=== PATIENT | female | born 1965 | race Caucasian/White ===

== ENCOUNTER 2016-10-26 10:26 | Inpatient (IN) | payer MEDICAID ==
[2016-10-26] VITALS (10 sets, daily range): BP systolic 82–110; BP diastolic 44–66; PULSE 72–90; RESP 16–18; TEMP 98.5–100; O2SAT 90–99
[~2016-10-26] VITALS: Ht 162.6 cm; Wt 75.0 kg
[~2016-10-26 10:26] MED LIST: AUGM875T PO; NYST500KS SWISH-SWAL; TUMS500C PO
[2016-10-26] MEDS ORDERED: SODIUM CHLOR 0.9% 1000 ML INJ 1,000 ML IV SCH (10:44)
[2016-10-26] MEDS ORDERED: MORPHINE SULFATE 4 MG/ML INJ IV PUSH ONE (10:45)
[2016-10-26] MEDS ORDERED: SODIUM CHLORIDE 0.9% FLUSH 10 ML FLUSH IV FLUSH PRN ×2 (10:45→14:15)
[2016-10-26] MEDS ORDERED: ONDANSETRON HCL 4 MG/2 ML VIAL IVP ONE (10:45)
[2016-10-26 10:59] LABS: AUTOMATED NEUTROPHIL # 27.6 TH/MM3 (1.8-7.7); BASOPHIL # 0.5 TH/MM3 (0-0.2); BASOPHIL % 1.8 % (0.0-2.0); EOSINOPHIL # 0.1 TH/MM3 (0-0.4); EOSINOPHIL % 0.2 % (0.0-4.0); HEMATOCRIT 37.3 % (35.0-46.0); LYMPH % 5.3 % (9.0-44.0); LYMPHOCYTE # 1.6 TH/MM3 (1.0-4.8); MEAN CELL VOLUME 89.1 FL (80.0-100.0); MEAN CORPUSCULAR HEMOGLOBIN 29.8 PG (27.0-34.0); MEAN CORPUSCULAR HGB CONC 33.4 % (32.0-36.0); NEUT % 91.7 % (16.0-70.0); PLATELET COUNT 390 TH/MM3 (150-450); RED BLOOD COUNT 4.19 MIL/MM3 (4.00-5.30); RED CELL DISTRIBUTION WIDTH 14.2 % (11.6-17.2); WHITE BLOOD COUNT 30.1 TH/MM3 (4.0-11.0)
[2016-10-26 11:02] LABS: HEMO FLAGS AUTO DIFF
[2016-10-26 11:10] LABS: CHLORIDE 107 MEQ/L (98-107); POTASSIUM 3.9 MEQ/L (3.5-5.1); SODIUM (NA) 137 MEQ/L (136-145)
[2016-10-26 11:10] LABS: BLOOD, URINE SMALL (NEG); GLUCOSE,URINE NEG (NEG); KETONE, URINE NEG (NEG); NITRITE,URINE NEG (NEG)
[2016-10-26 11:14] LABS: ANION GAP 8 MEQ/L (5-15); APTT (PATIENT) 29.7 SEC (24.3-30.1); BICARBONATE 22.3 MEQ/L (21.0-32.0); BLOOD UREA NITROGEN 9 MG/DL (7-18); INTERNATIONAL NORMALIZED RATIO 0.9 RATIO; PROTHROMBIN TIME - PATIENT 10.3 SEC (9.8-11.6)
[2016-10-26 11:16] LABS: ALT (GPT) 82 U/L (10-53)
[2016-10-26 11:17] LABS: AST (GOT) 120 U/L (15-37); GLOMERULAR FILTRATION RATE 68 ML/MIN (>89)
[2016-10-26 11:17] LABS: METHOD OF COLLECTION CLEAN CATCH; RBC, URINE 0-3 /hpf (0-3); SQUAMOUS EPITHELIAL CELL URINE 0-5 /hpf (0-5); URINE COLOR YELLOW (YELLW/STRAW)
[2016-10-26 11:18] LABS: TOTAL BILIRUBIN ADULT 0.7 MG/DL (0.2-1.0)
[2016-10-26 11:18] LABS: COMMENT (UR) CULT NOT INDICATED; CULTURE IF INDICATED CULT NOT INDICATED
[2016-10-26 11:20] LABS: ALKALINE PHOSPHATASE 141 U/L (45-117)
[2016-10-26 11:24] LABS: SCAN/DIFF AUTO DIFF CONFIRMED
[2016-10-26] MEDS ORDERED: IOHEXOL 350 MG/ML 10 ML VIAL (for RAD DIAG) IV ONE (11:48)
--- NOTE | 2016-10-26 12:03 | RADRPT ---
EXAM DATE/TIME: 10/26/2016 11:35 [facility] COMPARISON: CT ABDOMEN & PELVIS W CONTRAST, October 07, 2015, 1:13. INDICATIONS : Abdominal pain radiating to back. IV CONTRAST: 90 cc Omnipaque 350 (iohexol) IV ORAL CONTRAST: No oral contrast ingested. RADIATION DOSE: 8.76 CTDIvol (mGy) MEDICAL HISTORY : None SURGICAL HISTORY : section. Tubal ligation. ENCOUNTER: Initial ACUITY: 1 day PAIN SCALE: 5/10 LOCATION: abdomen TECHNIQUE: Volumetric scanning of the abdomen and pelvis was performed. Using automated exposure control and ad justment of the mA and/or kV according to patient size, radiation dose was kept as low as reasonably achievable to obtain optimal diagnostic quality images. DICOM format image data is available electro nically for review and comparison. FINDINGS: LOWER LUNGS: Posterior bibasilar patchiness is noted consistent with possible pneumonia. Clinical correlation is r ecommended. LIVER: The liver is enlarged. Homogeneous density without lesion. There is no dilation of the biliary tree. No calcified gallstones. SPLEEN: Normal size without lesion. PANCREAS: Within normal limits. KIDNEYS: Normal in size and shape. There is no solid mass, stone or hydronephrosis. There is a stable 17 mm r ight renal cyst. ADRENAL GLANDS: Within normal limits. VASCULAR: There is no aortic aneurysm. BOWEL/MESENTERY: There is mild fold thickening involving the proximal jejunum raising the possibility of mild jejuniti s. Clinical correlation is recommended. Uncomplicated colonic diverticulosis is noted. ABDOMINAL WALL: Within normal limits. RETROPERITONEUM: There is no lymphadenopathy. BLADDER: No wall thickening or mass. REPRODUCTIVE: Within normal limits. INGUINAL: There is no lymphadenopathy or hernia. MUSCULOSKELETAL: Within normal limits for patient age. CONCLUSION: 1. Posterior bibasilar patchiness consistent with possible pneumonia. Clinical correlation is recomme nded. 2. Mild fold thickening involving the proximal jejunum raising the possibility of mild jejunitis. Cli nical correlation is recommended. 3. Uncomplicated sigmoid diverticulosis. 4. Stable hepatomegaly. 5. Stable 17 mm right renal cyst. Joao Barrett MD on October 26, 2016 at 11:54 Board Certified Radiologist. This report was verified electronically.
[2016-10-26] MEDS ORDERED: LEVOFLOXACIN 750 MG PREMIX INJ 150 ML IV ONE (12:15)
[2016-10-26] MEDS ORDERED: metroNIDAZOLE 500 MG INJ 100 ML IV ONE (12:15)
[2016-10-26] MEDS ORDERED: cefTRIAXone INJ 1,000 MG in SODIUM CHLORIDE 0.9% INJ 100 ML IV ONE (12:15)
[2016-10-26] MEDS ORDERED: SODIUM CHLOR 0.9% 1000 ML INJ 1,000 ML IV ONE (12:30)
--- NOTE | 2016-10-26 13:06 | PD ---
HPI Chief Complaint: GI Complaint Time Seen by Provider: 10:36 Travel History International Travel<30 days: No Contact w/Intl Traveler<30days: No Traveled to known affect area: No History of Present Illness HPI Patient is a 51 year old female who comes in complaining of abdominal pain wrapping around her back. She says this started two days ago and has been getting worse. She says it feels like when she was sick about a year ago. She says the pain is mostly at the top of her abdomen. She has had some nausea, no vomiting. She denies dysuria. She has been having normal bowel movements. PFSH Past Medical History Cancer: No Cardiovascular Problems: Yes (LOW BP) Cerebrovascular Accident: No Diabetes: No Diminished Hearing: No Endocrine: No Gastrointestinal Disorders: Yes Genitourinary: Yes Immune Disorder: No Musculoskeletal: No Neurologic: No Psychiatric: No Reproductive: No Respiratory: No Immunizations Current: Yes Influenza Vaccination: No ?: Not Tubal Ligation: Yes Past Surgical History Section: Yes Gynecologic Surgery: Yes (, TUBAL LIGATION) Other Surgery: No Family History Family Myocardial Infarction: Yes Social History Alcohol Use: Yes (RARELY) Tobacco Use: Yes (PPD) Substance Use: No Allergies-Medications (Allergen,Severity, Reaction): Coded Allergies: *MDRO Multi-Drug Resistant Organism (Verified Adverse Reaction, Unknown, ) MRSA Reported Meds & Prescriptions Reported Meds & Active Scripts Active Review of Systems Except as stated in HPI: all other systems reviewed are Neg General / Constitutional: Positive: Fever, Chills Eyes: No: Blurred Vision HENT: No: Headaches, Lightheadedness Cardiovascular: No: Chest Pain or Discomfort Respiratory: No: Shortness of Breath Gastrointestinal: Positive: Nausea, Abdominal Pain, No: Vomiting, Diarrhea Genitourinary: No: Dysuria, Discharge Skin: No Rash, No Change in Pigmentation Neurologic: No: Weakness, Dizziness Physical Exam Narrative GENERAL: Awake and alert, in no acute distress. SKIN: Focused skin assessment warm/dry. HEAD: Atraumatic. Normocephalic. EYES: Pupils equal and round. No scleral icterus. ENT: Mucous membranes pink and moist. NECK: Trachea midline. No JVD. CARDIOVASCULAR: Regular rate and rhythm. No murmur appreciated. RESPIRATORY: No accessory muscle use. Clear to auscultation. Breath sounds equal bilaterally. GASTROINTESTINAL: Abdomen soft, nondistended. Tender to palpation across the upper part of the abdomen. No rebound, voluntary guarding. MUSCULOSKELETAL: No obvious deformities. No clubbing. No cyanosis. No edema. NEUROLOGICAL: Awake and alert. No obvious cranial nerve deficits. Motor grossly within normal limits. Normal speech. PSYCHIATRIC: Appropriate mood and affect; insight and judgment normal. Data Data Last Documented VS Vital Signs Date Time Temp Pulse Resp B/P Pulse Ox O2 Delivery O2 Flow Rate FiO2 10/26/16 12:52 76 18 88/44 96 Room Air 10/26/16 10:34 99.6 Orders Complete Blood Count With Diff (10/26/16 10:44) Comprehensive Metabolic Panel (10/26/16 10:44) Lactic Acid (10/26/16 10:44) Prothrombin Time / Inr (Pt) (10/26/16 10:44) Act Partial Throm Time (Ptt) (10/26/16 10:44) Urinalysis - C+S If Indicated (10/26/16 10:44) Ua Includes Microscopic (10/26/16 10:44) Ct Abd/Pel W Iv Contrast(Rout) (10/26/16 10:44) Iv Access Insert/Monitor (10/26/16 10:44) Ecg Monitoring (10/26/16 10:44) Oximetry (10/26/16 10:44) Morphine Inj (Morphine Inj) (10/26/16 10:45) Ondansetron Inj (Zofran Inj) (10/26/16 10:45) Sodium Chlor 0.9% 1000 Ml Inj (Ns 1000 M (10/26/16 10:44) Sodium Chloride 0.9% Flush (Ns Flush) (10/26/16 10:45) Ed Urine Pregnancytest Poc (10/26/16 10:44) Iohexol 350 Inj (Omnipaque 350 Inj) (10/26/16 11:48) Ceftriaxone Inj (Rocephin Inj) (10/26/16 12:15) Levofloxacin 750 Mg Premix Inj (Levaquin (10/26/16 12:15) Metronidazole 500 Mg Inj (Flagyl 500 Mg (10/26/16 12:15) Sodium Chlor 0.9% 1000 Ml Inj (Ns 1000 M (10/26/16 12:30) Labs Laboratory Tests Test 10/26/16 10/26/16 10:45 11:00 White Blood Count 30.1 TH/MM3 Red Blood Count 4.19 MIL/MM3 Hemoglobin 12.5 GM/DL Hematocrit 37.3 % Mean Corpuscular Volume 89.1 FL Mean Corpuscular Hemoglobin 29.8 PG Mean Corpuscular Hemoglobin 33.4 % Concent Red Cell Distribution Width 14.2 % Platelet Count 390 TH/MM3 Mean Platelet Volume 8.1 FL Neutrophils (%) (Auto) 91.7 % Lymphocytes (%) (Auto) 5.3 % Monocytes (%) (Auto) 1.0 % Eosinophils (%) (Auto) 0.2 % Basophils (%) (Auto) 1.8 % Neutrophils # (Auto) 27.6 TH/MM3 Lymphocytes # (Auto) 1.6 TH/MM3 Monocytes # (Auto) 0.3 TH/MM3 Eosinophils # (Auto) 0.1 TH/MM3 Basophils # (Auto) 0.5 TH/MM3 CBC Comment AUTO DIFF Differential Comment AUTO DIFF CONFIRMED Prothrombin Time 10.3 SEC Prothromb Time International 0.9 RATIO Ratio Activated Partial 29.7 SEC Thromboplast Time Sodium Level 137 MEQ/L Potassium Level 3.9 MEQ/L Chloride Level 107 MEQ/L Carbon Dioxide Level 22.3 MEQ/L Anion Gap 8 MEQ/L Blood Urea Nitrogen 9 MG/DL Creatinine 0.88 MG/DL Estimat Glomerular Filtration 68 ML/MIN Rate Random Glucose 102 MG/DL Lactic Acid Level 1.0 mmol/L Calcium Level 8.4 MG/DL Total Bilirubin 0.7 MG/DL Aspartate Amino Transf 120 U/L (AST/SGOT) Alanine Aminotransferase 82 U/L (ALT/SGPT) Alkaline Phosphatase 141 U/L Total Protein 6.9 GM/DL Albumin 3.1 GM/DL Urine Collection Type CLEAN CATCH Urine Color YELLOW Urine Turbidity CLEAR Urine pH 6.0 Urine Specific [place] 1.005 Urine Protein NEG mg/dL Urine Glucose (UA) NEG mg/dL Urine Ketones NEG mg/dL Urine Occult Blood SMALL Urine Nitrite NEG Urine Bilirubin NEG Urine Leukocyte Esterase NEG Urine RBC 0-3 /hpf Urine Squamous Epithelial 0-5 /hpf Cells Microscopic Urinalysis Comment CULT NOT INDICATED Urine Collection Time 11:[address] [facility] Medical Decision Making Medical Screen Exam Complete: Yes Emergency Medical Condition: Yes Medical Record Reviewed: Yes Differential Diagnosis colitis vs diverticulitis vs cholecystics vs pneumonia vs gastritis vs UTI vs renal stone vs pyelonephritis Narrative Course Patient is a 51 year old female who comes in complaining of abdominal pain. Exam shows diffuse abdominal pain. IV established, labs sent, patient connected to the satellite project site monitor. Patient is hypotensive. Given IVF with some improvement of her BP. Labs show a WBC count of 30. CT shows bilateral consolidations in the lungs. There is also jejunitis. Given Rocephin, Levaquin, Flagyl. Will be admitted for further management. Diagnosis Primary Impression: Pneumonia Qualified Code: J18.9 - Pneumonia of both lower lobes due to infectious organism Additional Impressions: Infectious enteritis Qualified Code: A09 - Infectious enteritis, unspecified infectious agent Sepsis Qualified Code: A41.9 - Sepsis, due to unspecified organism Admitting Information Admitting Physician Requests: it Yaima Mendoza MD Oct 26, 2016 13:06
[2016-10-26] MEDS ORDERED: MAGNESIUM HYDROXIDE SUSP 30 ML CUP PO PRN (14:15)
[2016-10-26] MEDS ORDERED: BISACODYL 10 MG SUPP RECTAL PRN (14:15)
[2016-10-26] MEDS ORDERED: NALOXONE HCL 0.4 MG/ML AMP IV PRN (14:15)
[2016-10-26] MEDS ORDERED: SENNOSIDES 8.6 MG TAB PO PRN (14:15)
[2016-10-26] MEDS ORDERED: LACTULOSE SYRUP 20 GM/30 ML CUP PO PRN (14:15)
[2016-10-26] MEDS: SODIUM CHLOR 0.9% 1000 ML INJ 1,000 ML IV SCH ×2 (14:30→20:20)
[2016-10-26] MEDS: ENOXAPARIN SODIUM 40 MG/0.4 ML SYRINGE SQ SCH (14:31)
[2016-10-26 15:00] LABS: CREATINE KINASE 28 U/L (26-192)
--- NOTE | 2016-10-26 15:33 | RADRPT ---
EXAM DATE/TIME: 10/26/2016 14:58 [facility] COMPARISON: No previous studies available for comparison. INDICATIONS : Increased lab values. MEDICAL HISTORY : Abdominal pain. Dental problems. Depression. Elevated lipase. Nausea. Vomiting. SURGICAL HISTORY : None. ENCOUNTER: Initial ACUITY: 2 days PAIN SCORE: 8/10 LOCATION: Bilateral upper quadrant MEASUREMENTS: LIVER: 17.5 cm length COMMON DUCT: 3 mm RIGHT KIDNEY: 10.9 x 4.0 x 4.4 cm SPLEEN: 9.1 cm length FINDINGS: LIVER: Normal echotexture without focal lesion or ductal dilatation. COMMON DUCT: No intraluminal mass or stone visualized. GALLBLADDER: Contains no stones, demonstrates no wall thickening or pericholecystic fluid. PANCREAS: The visualized portions are within normal limits. RIGHT KIDNEY: 17 mm cyst in the lower pole cortex SPLEEN: No focal lesion. CONCLUSION: Small right renal cyst. Brian Sanders MD on October 26, 2016 at 15:29 Board Certified Radiologist. This report was verified electronically.
--- NOTE | 2016-10-26 18:56 | HHI.HP ---
[facility] No Primary Care Physician Admission Diagnosis pneumonia, jejunitis Diagnoses: Travel History International Travel<30 Days: No Contact w/Intl Traveler <30 Da: No Traveled to Known Affected Are: No History of Present Illness 51-year-old female with a history of gastrointestinal disorders in the past, 25- pack-year history of smoking, who presents with a three-day history of lower abdominal waxing and waning, cramping pain radiating to the back. She also reports 2 day history of nausea with no vomiting, denies any diarrhea or constipation. Denies any chest pain or shortness of breath. Previous admission last year with bacterial vaginosis. Patient denies any discharge, however does report menses , moderate , over the past 2 weeks. She says she is used to having intermittent periods over the past several years sometimes months in between; she reports nothing unusual about this period. Review of Systems Performed and negative except for history of present illness and past medical history. Past Family Social History Past Medical History . 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 Mother with no medical conditions. Reported Medications Patient denies taking any medications. Allergies: Coded Allergies: *MDRO Multi-Drug Resistant Organism (Verified Adverse Reaction, Unknown, ) MRSA Family History Father from stroke at age 72. Mother with no medical conditions. Social History Patient is smoked one pack per day for the past 25 years. Patient reports rare alcohol use. Denies any illicit drugs. Physical Exam Vital Signs Vital Signs Date Time Temp Pulse Resp B/P Pulse Ox O2 Delivery O2 Flow Rate FiO2 10/26/16 17:25 77 18 103/66 98 Room Air 10/26/16 14:34 80 18 102/58 99 Room Air 10/26/16 13:37 79 18 95/55 98 Room Air 10/26/16 12:52 76 18 88/44 96 Room Air 10/26/16 11:16 15 10/26/16 11:15 88 18 86/53 96 10/26/16 11:03 72 16 90/55 98 Room Air 10/26/16 10:34 99.6 90 18 83/53 98 Physical Exam GENERAL: This is a well-nourished, well-developed patient, appears uncomfortable. Alert and oriented 3. SKIN: No rashes, ecchymoses or lesions. Cool and dry. HEAD: Atraumatic. Normocephalic. No temporal or scalp tenderness. EYES: Pupils equal round and reactive. Extraocular motions intact. No scleral icterus. No injection or drainage. ENT: Nose without bleeding, purulent drainage or septal hematoma. Throat without erythema, tonsillar hypertrophy or exudate. Uvula midline. Airway patent. NECK: Trachea midline. No JVD or lymphadenopathy. Supple, nontender, no meningeal signs. CARDIOVASCULAR: Regular rate and rhythm without murmurs, gallops, or rubs. RESPIRATORY: Clear to auscultation. Breath sounds equal bilaterally. No wheezes , rales, or rhonchi. GASTROINTESTINAL: Abdomen soft, nondistended. Tenderness to palpation in bilateral lower quadrants, left greater than right. No hepato-splenomegaly, or palpable masses. No rebound. No guarding. MUSCULOSKELETAL: Extremities without clubbing, cyanosis, or edema. No joint tenderness, effusion, or edema noted. No calf tenderness. Negative Homans sign bilaterally. NEUROLOGICAL: Awake and alert. Cranial nerves II through XII intact. Motor and sensory grossly within normal limits. Five out of 5 muscle strength in all muscle groups. Normal speech. Laboratory Laboratory Tests Test 10/26/16 10/26/16 10/26/16 10:45 11:00 14:20 White Blood Count 30.1 Red Blood Count 4.19 Hemoglobin 12.5 Hematocrit 37.3 Mean Corpuscular Volume 89.1 Mean Corpuscular Hemoglobin 29.8 Mean Corpuscular Hemoglobin 33.4 Concent Red Cell Distribution Width 14.2 Platelet Count 390 Mean Platelet Volume 8.1 Neutrophils (%) (Auto) 91.7 Lymphocytes (%) (Auto) 5.3 Monocytes (%) (Auto) 1.0 Eosinophils (%) (Auto) 0.2 Basophils (%) (Auto) 1.8 Neutrophils # (Auto) 27.6 Lymphocytes # (Auto) 1.6 Monocytes # (Auto) 0.3 Eosinophils # (Auto) 0.1 Basophils # (Auto) 0.5 CBC Comment AUTO DIFF Differential Comment AUTO DIFF CONFIRMED Prothrombin Time 10.3 Prothromb Time International 0.9 Ratio Activated Partial 29.7 Thromboplast Time Sodium Level 137 Potassium Level 3.9 Chloride Level 107 Carbon Dioxide Level 22.3 Anion Gap 8 Blood Urea Nitrogen 9 Creatinine 0.88 Estimat Glomerular Filtration 68 Rate Random Glucose 102 Lactic Acid Level 1.0 Calcium Level 8.4 Total Bilirubin 0.7 Aspartate Amino Transf 120 (AST/SGOT) Alanine Aminotransferase 82 (ALT/SGPT) Alkaline Phosphatase 141 Total Protein 6.9 Albumin 3.1 Urine Collection Type CLEAN CATCH Urine Color YELLOW Urine Turbidity CLEAR Urine pH 6.0 Urine Specific [place] 1.005 Urine Protein NEG Urine Glucose (UA) NEG Urine Ketones NEG Urine Occult Blood SMALL Urine Nitrite NEG Urine Bilirubin NEG Urine Leukocyte Esterase NEG Urine RBC 0-3 Urine Squamous Epithelial 0-5 Cells Microscopic Urinalysis Comment CULT NOT INDICATED Urine Collection Time 11:00 Total Creatine Kinase 28 Lipase 77 Result Diagram: 10/26/16 1045 10/26/16 1045 Assessment and Plan Assessment and Plan //Pneumonia -Posterior bibasilar patchiness consistent with pneumonia on CT. Patient does report chronic cough. -Continue broad-spectrum antibiotics. -Levaquin. //Gastroenteritis -Abdominal pain. Possible jejunitis seen on CT. -C. difficile toxin PCR ordered and pending. -Add metronidazole for anaerobic coverage //Transaminitis. -AST 120, ALT 82 on admission, elevated alkaline phosphatase 141. -Hepatitis profile and liver ultrasound ordered -CK within normal limits. Lipase within normal limits. Consult gastroenterology for recurrent gastroenteritis, with transaminitis. //Profound leukocytosis. -Possibly secondary to nausea. Workup ordered and pending. //Tobaccoism. Cessation counseling provided. Cessation strongly recommended. //Prophylaxis: Lovenox. Code Status Full code Discussed Condition With Patient, nurse, ED physician. Physician Certification 2 Midnight Certification Type: Admission for Inpatient Services Order for Inpatient Services The services are ordered in accordance with Medicare regulations or non- Medicare payer requirements, as applicable. In the case of services not specified as inpatient-only, they are appropriately provided as inpatient services in accordance with the 2-midnight benchmark. Estimated LOS (days): 2 days is the estimated time the patient will need to remain in the hospital, assuming treatment plan goals are met and no additional complications. Post-Hospital Plan: Not yet determined Ray Shields MD Oct 26, 2016 18:56
[2016-10-26] MEDS: KETOROLAC TROMETHAMINE 30 MG/ML (IVP) VIAL IV PUSH PRN (20:33)
[2016-10-26 20:51] LABS: AMPHETAMINE, URINE NEG (NEG)
[2016-10-26 20:52] LABS: BARBITURATES, URINE NEG (NEG)
[2016-10-26 20:56] LABS: COCAINE, URINE NEG (NEG)
[2016-10-26] MEDS: SODIUM CHLORIDE 0.9% FLUSH 10 ML FLUSH IV FLUSH SCH (21:00)
[2016-10-26] MEDS: metroNIDAZOLE 500 MG INJ 100 ML IV SCH (22:34)
[2016-10-26] MEDS: DOCUSATE SODIUM 50 MG/SENNA 8.6 MG TAB PO SCH (22:34)
[2016-10-27] VITALS: BP 84/51; PULSE 68; RESP 16; TEMP 98.4; O2SAT 93
[2016-10-27] MEDS: metroNIDAZOLE 500 MG INJ 100 ML IV SCH ×3 (06:02→23:03)
[2016-10-27] MEDS: KETOROLAC TROMETHAMINE 30 MG/ML (IVP) VIAL IV PUSH PRN (06:16)
[2016-10-27 06:19] LABS: AUTOMATED NEUTROPHIL # 12.3 TH/MM3 (1.8-7.7); BASOPHIL # 0.2 TH/MM3 (0-0.2); BASOPHIL % 0.9 % (0.0-2.0); EOSINOPHIL # 0.4 TH/MM3 (0-0.4); EOSINOPHIL % 2.1 % (0.0-4.0); HEMATOCRIT 32.5 % (35.0-46.0); LYMPH % 14.1 % (9.0-44.0); LYMPHOCYTE # 2.4 TH/MM3 (1.0-4.8); MEAN CELL VOLUME 90.6 FL (80.0-100.0); MEAN CORPUSCULAR HEMOGLOBIN 29.6 PG (27.0-34.0); MEAN CORPUSCULAR HGB CONC 32.7 % (32.0-36.0); MONO % 8.7 % (0.0-8.0); NEUT % 74.2 % (16.0-70.0); PLATELET COUNT 345 TH/MM3 (150-450); RED BLOOD COUNT 3.59 MIL/MM3 (4.00-5.30); RED CELL DISTRIBUTION WIDTH 14.3 % (11.6-17.2); WHITE BLOOD COUNT 16.8 TH/MM3 (4.0-11.0)
[2016-10-27 06:26] LABS: HEMO FLAGS DIFF FINAL
[2016-10-27 06:29] LABS: CHLORIDE 112 MEQ/L (98-107); POTASSIUM 3.5 MEQ/L (3.5-5.1); SODIUM (NA) 143 MEQ/L (136-145)
[2016-10-27 07:01] LABS: ALKALINE PHOSPHATASE 132 U/L (45-117); ALT (GPT) 52 U/L (10-53); ANION GAP 8 MEQ/L (5-15); AST (GOT) 50 U/L (15-37); BLOOD UREA NITROGEN 7 MG/DL (7-18); GLOMERULAR FILTRATION RATE 82 ML/MIN (>89); TOTAL BILIRUBIN ADULT 1.3 MG/DL (0.2-1.0)
[2016-10-27 08:00] VITALS: BP 85/55; PULSE 69; RESP 20; TEMP 98.1; O2SAT 93
[2016-10-27] MEDS: SODIUM CHLORIDE 0.9% FLUSH 10 ML FLUSH IV FLUSH SCH ×2 (09:00→21:00)
[2016-10-27] MEDS: DOCUSATE SODIUM 50 MG/SENNA 8.6 MG TAB PO SCH ×2 (09:22→21:00)
[2016-10-27] MEDS: SODIUM CHLOR 0.9% 1000 ML INJ 1,000 ML IV SCH ×2 (09:26→21:02)
--- NOTE | 2016-10-27 11:06 | HHI.PR ---
Subjective Remarks Patient says that abdominal pain continues. Requesting more pain medication. Denies any nausea or vomiting. Denies any chest pain or shortness of breath. Objective Vital Signs Date Time Temp Pulse Resp B/P Pulse Ox O2 Delivery O2 Flow Rate FiO2 10/27/16 08:00 98.1 69 20 85/55 93 10/27/16 00:00 98.4 68 16 84/51 93 10/26/16 20:39 82 16 110/60 95 10/26/16 20:00 98.5 84 16 82/55 90 10/26/16 19:35 100.0 78 18 95/50 95 Room Air 10/26/16 17:25 77 18 103/66 98 Room Air 10/26/16 14:34 80 18 102/58 99 Room Air 10/26/16 13:37 79 18 95/55 98 Room Air 10/26/16 12:52 76 18 88/44 96 Room Air 10/26/16 11:16 15 10/26/16 11:15 88 18 86/53 96 I/O 10/26/16 10/26/16 10/26/16 10/27/16 10/27/16 10/27/16 07:00 15:00 23:00 07:00 15:00 23:00 Intake Total 2350 ml 820 ml 1900 ml Balance 2350 ml 820 ml 1900 ml Intake Oral 120 ml 240 ml IV Total 2350 ml 700 ml 1660 ml # Voids 1 1 2 # Bowel Movements 0 Result Diagram: 10/27/16 0540 10/27/16 0540 Objective Remarks GENERAL: Patient lying in bed. Appears uncomfortable. Alert and oriented 3. SKIN: Warm and dry. HEAD: Normocephalic. EYES: No scleral icterus. No injection or drainage. NECK: Supple, trachea midline. No JVD CARDIOVASCULAR: Regular rate and rhythm without murmurs, gallops, or rubs. RESPIRATORY: Breath sounds equal bilaterally. No accessory muscle use. GASTROINTESTINAL: Abdomen soft, nondistended. Tender to palpation diffusely. No rebound or guarding. Positive bowel sounds. MUSCULOSKELETAL: No cyanosis, or edema. BACK: Nontender without obvious deformity. No CVA tenderness. A/P Assessment and Plan //Pneumonia -Posterior bibasilar patchiness consistent with pneumonia on CT. Patient does report chronic cough. -Continue broad-spectrum antibiotics. -Continue Levaquin. //Gastroenteritis -Abdominal pain. Possible jejunitis seen on CT. -C. difficile toxin PCR ordered and pending. -Continue Levaquin, as well as metronidazole for anaerobic coverage //Transaminitis. -AST 120, ALT 82 on admission, elevated alkaline phosphatase 141. -Hepatitis profile and liver ultrasound ordered -CK within normal limits. Lipase within normal limits. Follow-up Consult gastroenterology for recurrent gastroenteritis, with transaminitis. //Profound leukocytosis. -Possibly secondary to nausea. -10/27. Improving. Leukocytosis 16 today from 33 on admission. Obtain a monitor //Hypertension. syst. Blood pressures in the 80s. Patient reports relatively low blood pressures at baseline. Continue to monitor. //Tobaccoism. Cessation counseling provided. Cessation strongly recommended. //Prophylaxis: Lovenox. Discharge Planning Home when cleared by gastroenterology. Ray Shields MD Oct 27, 2016 11:06
[2016-10-27] MEDS ORDERED: ACETAMINOPHEN 325 MG TAB PO PRN (11:15)
[2016-10-27] MEDS ORDERED: NALOXONE HCL 0.4 MG/ML AMP IV PRN (11:15)
[2016-10-27] MEDS ORDERED: ACETAMINOPHEN/HYDROcodone 325 MG/5 MG TAB PO PRN (11:15)
[2016-10-27 12:00] VITALS: BP 106/72; PULSE 57; RESP 20; TEMP 96.3; O2SAT 95
[2016-10-27] MEDS: ACETAMINOPHEN/HYDROcodone 325 MG/7.5 MG TAB PO PRN ×3 (13:02→21:03)
[2016-10-27] MEDS: LEVOFLOXACIN 750 MG TAB PO SCH (13:02)
[2016-10-27 16:00] VITALS: BP 103/69; PULSE 66; RESP 20; TEMP 96.8; O2SAT 95
[2016-10-27] MEDS: ENOXAPARIN SODIUM 40 MG/0.4 ML SYRINGE SQ SCH (17:08)
[2016-10-27] MEDS ORDERED: PEG (High)/E-LYTE SOLN 4000 ML BTL PO ONE (19:00)
[2016-10-27 20:00] VITALS: BP 110/70; PULSE 57; RESP 20; TEMP 96.1; O2SAT 95
--- NOTE | 2016-10-27 20:13 | MB ---
cc: MILA ARTEAGA M.D. DATE OF CONSULTATION 10/27/2016 DATE OF [address] Shields. REASON FOR CONSULTATION Abdominal pain, abnormal CT scan and elevated liver function tests. HISTORY OF THE PRESENT ILLNESS Thank you for the consultation. A pleasant 51-year-old lady who has been in good health until 2 days ago when she started having acute abdominal pain, general discomfort. She cannot pinpoint with location. It is about 6-7/10 accompanied with nausea, no vomiting. Not related to food. Denied any hematemesis, coffee-ground emesis. No blood in the stool. No diarrhea or constipation. She had similar episode about a year ago and at that time she was told it could be gallbladder but she had UTI at that time. Currently she still has abdominal discomfort and not subsiding but no active bleeding and she had mild drop in her hemoglobin. Currently stated that she had her period which has been heavier, lasting two weeks, with cramping in the last year. FAMILY HISTORY Significant for stroke with her dad. SOCIAL HISTORY Positive for tobacco. Rare alcohol. No drugs. ALLERGIES MULTIDRUG RESISTANT ORGANISM AND MRSA. MEDICATIONS None. PAST SURGICAL HISTORY 1. Negative except for with bilateral tubal ligation. 2. And tumors in the shoulder at the age of 13. PAST MEDICAL HISTORY No other medical problems. REVIEW OF SYSTEMS All 12-point negative except HPI. PHYSICAL EXAMINATION GENERAL: Alert, oriented, in no acute distress. VITAL SIGNS: Stable. HEENT: Pupils are round and reactive to light. NECK: Supple. CHEST: Clear to auscultation and percussion. CARDIOVASCULAR: Regular rate and rhythm. No murmur or gallop. ABDOMEN: Soft, nondistended. Mild diffuse tenderness. No rebound. Positive bowel sounds. I could not appreciate ascites or masses. No hepatosplenomegaly. EXTREMITIES: No edema, clubbing or cyanosis. NEUROLOGIC: Intact. No abnormality. All muscle strength intact. PSYCHOLOGIC: Psychologically appropriate. The patient is a little bit anxious. LABORATORY DATA Hepatitis profile was negative. White count was 30.1 and today it is 16.8. Platelet 345. Hemoglobin 12.5 yesterday, today it is 10.6. INR 0.9. Liver function tests on admission, AST was 120, today it is 50. ALT on admission was 82, today it is 52. Total bilirubin was 0.7 and today is 1.3. Albumin 2.4, lipase 77. Kidney functions normal. Toxicology was negative. Urine was negative. IMAGING CT scan showed possible pneumonia. Mild fold thickening in the proximal jejunum, possible mild jejunitis. Diverticulosis. Mild hepatomegaly. Renal cyst. Ultrasound showed simple right renal cyst. ASSESSMENT/PLAN A 51-year-old lady with abdominal pain, abnormal CT scan with anemia, could be gastroenteritis. We need to rule out other etiologies for the anemia which could be related to heavy period but with her age and her symptoms, I recommend doing upper endoscopy and a colonoscopy. I discussed with the patient the procedure, complications, alternatives. She agreed to have it done, this will be done tomorrow. Further plan depends on the finding tomorrow. MD JOAQUIM Bradley/KK /6:01 PM /7:49 PM
[2016-10-27] MEDS ORDERED: ONDANSETRON HCL 4 MG/2 ML VIAL IV PUSH ONE (22:45)
[2016-10-27] MEDS ORDERED: MORPHINE SULFATE 4 MG/ML INJ IV PUSH ONE (22:45)
[2016-10-28 00:16] LABS: C. DIFF EPI 027 PRESUMPTIVE NEGATIVE (NEGATIVE); C. DIFF TOXIN PCR NEGATIVE (NEGATIVE)
[2016-10-28 04:00] VITALS: BP 99/62; PULSE 77; RESP 20; TEMP 98; O2SAT 89
[2016-10-28] MEDS: metroNIDAZOLE 500 MG INJ 100 ML IV SCH ×3 (05:34→22:21)
[2016-10-28] MEDS: SODIUM CHLOR 0.9% 1000 ML INJ 1,000 ML IV SCH (05:34)
[2016-10-28 05:44] VITALS: O2SAT 95
--- NOTE | 2016-10-28 08:13 | GIPROC ---
[facility] [address] [place] [address], [id number] ENTEROSCOPY PROCEDURE REPORT EXAM DATE: 10/28/2016 PATIENT NAME: Radha Humphreys MR#: [id number] BIRTHDATE: 1965 ATTENDING: Sierra Rios MD ORDER #: [id number] PRODUCT SUPPORT ENGINEER: Mani Judge and Una Gay STATUS: inpatient INDICATIONS: The patient is a 51 yr old female here for an enteroscopy procedure due to abdominal pain PROCEDURE PERFORMED: Small bowel enteroscopy with biopsy MEDICATIONS: None and Per Anesthesia. CONSENT: The patient understands the risks and benefits of the procedure and understands that these risks include, but are not limited to: sedation, allergic reaction, infection, perforation and/or bleeding. Alternative means of evaluation and treatment include, among others: physical exam, x-rays, and/or surgical intervention. The patient elects to proceed with this endoscopic procedure. medical equipment was checked for proper function. Hand hygiene and appropriate measures for infection prevention was taken. After the risks, benefits and alternatives of the procedure were thoroughly explained, Informed consent was verified, confirmed and timeout was successfully executed by the treatment team. The [id number] (Pedi C) endoscope was introduced through the mouth and advanced to the jejunal crest jejunum. The prep was good. The instrument was then slowly withdrawn while examining the mucosa circumferentially. The scope was then completely withdrawn from the patient and the procedure terminated. The pulse, BP, and O2 saturation were monitored and documented by the physician and the nursing staff throughout the entire procedure. The patient was cared for as planned according to standard protocol, then discharged to recovery in stable condition and with appropriate post procedure care. Gastritis was found Esophagitis was found in the distal esophagus. The duodenal bulb was normal in appearance, as was the postbulbar duodenum. in the proximal jejunum. ADVERSE EVENTS: There were no complications. IMPRESSIONS: 1. Gastritis was found 2. Esophagitis was found in the distal esophagus 3. The duodenal bulb was normal in appearance, as was the postbulbar duodenum. in the proximal jejunum RECOMMENDATIONS: no NSAIDs Protonix 40 mg po Q am Await Bx done from antrum and distal esophagus diet as tolerated RECALL: procedure as needed Sierra Rios MD eSigned: Sierra Rios MD 10/28/2016 8:12 AM cc: PATIENT NAME: Radha Humphreys MR#: [id number]
--- NOTE | 2016-10-28 08:15 | GIPROC ---
[facility] [address] [place] [address], [id number] COLONOSCOPY PROCEDURE REPORT EXAM DATE: 10/28/2016 PATIENT NAME: Radha Humphreys MR #: [id number] BIRTHDATE: 1965 ENDOSCOPIST: Sierra Rios MD ORDER #: [id number] [employer] SUPERVISOR: Mani Judge and Una Gay STATUS: inpatient INDICATIONS: The patient is a 51 yr old female here for a colonoscopy due to abdominal pain PROCEDURE PERFORMED: Colonoscopy with polypectomy Colonoscopy with ablation MEDICATIONS: None and Per Anesthesia. PREP QUALITY: good ESTIMATED BLOOD LOSS: None CONSENT: The patient understands the risks and benefits of the procedure and understands that these risks include, but are not limited to: sedation, allergic reaction, infection, perforation and/or bleeding. Alternative means of evaluation and treatment include, among others: physical exam, x-rays, and/or surgical intervention. The patient elects to proceed with this endoscopic procedure. medical equipment was checked for proper function. Hand hygiene and appropriate measures for infection prevention was taken. After the risks, benefits and alternatives of the procedure were thoroughly explained, Informed consent was verified, confirmed and timeout was successfully executed by the treatment team. A digital exam revealed no abnormalities of the rectum The Pentax [id number] endoscope was introduced through the anus and advanced to the cecum, which was identified by both the appendix and ileocecal valve. The instrument was then slowly withdrawn as the colon was fully examined. COLON FINDINGS: 6 polyps in the rectosigmoid area 2 removed by snare and 4 ablated with heat. Rare diverticolosis in sigmoid. The colon mucosa was otherwise normal. Retroflexed views revealed no abnormalities The scope was then completely withdrawn from the patient and the procedure terminated. ADVERSE EVENTS: There were no complications. IMPRESSIONS: 1. 6 polyps in the rectosigmoid area 2 removed by snare and 4 ablated with heat 2. Rare diverticolosis in sigmoid 3. The colon mucosa was otherwise normal 4. Retroflexed views revealed no abnormalities 5. Revealed no abnormalities of the rectum RECOMMENDATIONS: 1. Await biopsy results. Biopsy results will not be ready for 7-10 days. If you don't hear from us in two weeks, call our office for results. 2. Yearly hemoccult 3. High fiber diet RECALL: Return 3 years Colonoscopy Sierra Rios MD eSigned: Sierra Rios MD 10/28/2016 8:15 AM cc:
[2016-10-28] MEDS: SODIUM CHLORIDE 0.9% FLUSH 10 ML FLUSH IV FLUSH SCH ×2 (09:00→20:08)
[2016-10-28] MEDS: DOCUSATE SODIUM 50 MG/SENNA 8.6 MG TAB PO SCH ×2 (09:00→20:08)
[2016-10-28 10:05] LABS: AUTOMATED NEUTROPHIL # 12.2 TH/MM3 (1.8-7.7); BASOPHIL # 1.2 TH/MM3 (0-0.2); BASOPHIL % 6.9 % (0.0-2.0); EOSINOPHIL # 0.3 TH/MM3 (0-0.4); EOSINOPHIL % 1.9 % (0.0-4.0); HEMATOCRIT 32.6 % (35.0-46.0); LYMPH % 10.4 % (9.0-44.0); LYMPHOCYTE # 1.8 TH/MM3 (1.0-4.8); MEAN CELL VOLUME 90.6 FL (80.0-100.0); MEAN CORPUSCULAR HEMOGLOBIN 30.2 PG (27.0-34.0); MEAN CORPUSCULAR HGB CONC 33.3 % (32.0-36.0); MONO % 8.1 % (0.0-8.0); NEUT % 72.7 % (16.0-70.0); PLATELET COUNT 356 TH/MM3 (150-450); RED CELL DISTRIBUTION WIDTH 14.2 % (11.6-17.2); WHITE BLOOD COUNT 16.9 TH/MM3 (4.0-11.0)
[2016-10-28 10:09] LABS: HEMO FLAGS AUTO DIFF
[2016-10-28 10:15] LABS: ANION GAP 9 MEQ/L (5-15); BICARBONATE 24.1 MEQ/L (21.0-32.0); CHLORIDE 111 MEQ/L (98-107); POTASSIUM 3.5 MEQ/L (3.5-5.1); SODIUM (NA) 144 MEQ/L (136-145)
[2016-10-28 10:18] LABS: GLOMERULAR FILTRATION RATE 84 ML/MIN (>89)
[2016-10-28 10:20] LABS: TOTAL BILIRUBIN ADULT 0.5 MG/DL (0.2-1.0)
[2016-10-28 10:21] LABS: ALKALINE PHOSPHATASE 122 U/L (45-117)
[2016-10-28 10:27] LABS: ALT (GPT) 37 U/L (10-53)
[2016-10-28 10:30] LABS: AST (GOT) 24 U/L (15-37)
[2016-10-28 10:31] LABS: BLOOD UREA NITROGEN 4 MG/DL (7-18)
[2016-10-28 10:59] LABS: BANDS 3 % (0-6); EOSINOPHILS 1 % (0-4); POLYS (SEG NEUTROPHILS) 80 % (16-70); SCAN/DIFF FINAL DIFF MANUAL; WBC DIFF SAMPLE 100
[2016-10-28] MEDS: LEVOFLOXACIN 750 MG TAB PO SCH (11:44)
[2016-10-28 12:00] VITALS: BP 99/78; PULSE 69; RESP 18; TEMP 97.8; O2SAT 93
--- NOTE | 2016-10-28 12:43 | EKG ---
Date Performed: 10/28/2016 Time Performed: 05:48:32 PTAGE: 51 years EKG: Sinus rhythm INCOMPLETE RIGHT BUNDLE BRANCH BLOCK BORDERLINE ECG PREVIOUS TRACING : 12/22/2009 19.01 DOCTOR: Jose Quan Interpretating Date/Time 10/28/2016 12:40:18
--- NOTE | 2016-10-28 12:48 | HHI.PR ---
Subjective Remarks Patient seen today in follow-up for abdominal pain and for cough. Abdominal pain is persistent and moderate but improved with IV morphine. Patient has been hypoxemic with a O2 sat of 89%. Care plan discussed with patient, Ann-Marie RINALDI. Status post endoscopy today which did show gastritis and esophagitis Objective Vitals Vital Signs Date Time Temp Pulse Resp B/P Pulse Ox O2 Delivery O2 Flow Rate FiO2 10/28/16 12:00 97.8 69 18 99/78 93 10/28/16 08:30 73 16 103/51 92 10/28/16 08:20 78 16 101/55 92 10/28/16 08:10 98.5 82 16 105/51 92 10/28/16 05:44 95 10/28/16 05:44 89 Nasal Cannula 2.00 10/28/16 04:00 98.0 77 20 99/62 89 10/27/16 20:00 96.1 57 20 110/70 95 10/27/16 16:00 96.8 66 20 103/69 95 I/O 10/27/16 10/27/16 10/27/16 10/28/16 10/28/16 10/28/16 07:00 15:00 23:00 07:00 15:00 23:00 Intake Total 1900 ml 480 ml 1268 ml 2293 ml 700 ml Balance 1900 ml 480 ml 1268 ml 2293 ml 700 ml Intake Oral 240 ml 480 ml 1500 ml IV Total 1660 ml 1268 ml 793 ml Other 700 ml # Voids 2 3 6 # Bowel Movements 0 12 Result Diagram: 10/28/16 0930 10/28/16 0930 Imaging Last Impressions Abdomen/Pelvis CT 10/26/16 1044 Signed Impressions: Service Date/Time: Wednesday, October 26, 2016 11:35 - CONCLUSION: 1. Posterior bibasilar patchiness consistent with possible pneumonia. Clinical correlation is recommended. 2. Mild fold thickening involving the proximal jejunum raising the possibility of mild jejunitis. Clinical correlation is recommended. 3. Uncomplicated sigmoid diverticulosis. 4. Stable hepatomegaly. 5. Stable 17 mm right renal cyst. Joao Barrett MD Liver Ultrasound 10/26/16 0000 Signed Impressions: Service Date/Time: Wednesday, October 26, 2016 14:58 - CONCLUSION: Small right renal cyst. Brian Sanders MD Objective Remarks GENERAL: This is a well-nourished, well-developed patient, complaining of abdominal pain CARDIOVASCULAR: Regular rate and rhythm without murmurs, gallops, or rubs. RESPIRATORY: Clear to auscultation. Breath sounds equal bilaterally. No wheezes , rales, or rhonchi. GASTROINTESTINAL: Abdomen soft, moderately tender, nondistended. Normal active bowel sounds MUSCULOSKELETAL: Extremities without clubbing, cyanosis, or edema. NEURO: Alert & Oriented x4 to person, place, time, situation. Moves all ext x4 Procedures Endoscopy: Gastritis, esophagitis A/P Problem List: (1) Abdominal pain ICD Code: R10.9 Status: Acute Plan: Due to gastritis, esophagitis C. difficile negative advance diet add ppi (2) Pneumonia ICD Code: J18.9 Status: Acute Plan: Community-acquired, continue Levaquin by mouth Repeat chest x-ray today Follow hypoxemia (3) Transaminitis ICD Code: R74.0 Status: Acute Plan: Resolved, hepatitis profile negative as is Liver ultrasound is within normal limits (4) Leukocytosis ICD Code: D72.829 Status: Acute Plan: Improving, (5) Hypoxemia ICD Code: R09.02 Status: Acute Plan: Rule out worsening pneumonia, we will DC IV fluids and follow closely No history of pulmonary disease prior to this admission (6) Hypotension ICD Code: I95.9 Status: Acute Plan: Likely at baseline, will follow after fluids are discontinued Assessment and Plan ambulate bid Discharge Planning 1-2 days home Problem Qualifiers (1) Pneumonia: Qualified Code: J18.9 - Pneumonia of both lower lobes due to infectious organism Sara Crespo MD Oct 28, 2016 12:48
--- NOTE | 2016-10-28 14:01 | RADRPT ---
EXAM DATE/TIME: 10/28/2016 12:44 [facility] COMPARISON: CHEST SINGLE AP, October 07, 2015, 9:16. INDICATIONS : Short of breath. Evaluate for pneumonia. MEDICAL HISTORY : None. SURGICAL HISTORY : None. ENCOUNTER: Initial ACUITY: 2 days PAIN SCORE: 0/10 LOCATION: Bilateral chest FINDINGS: Patchy opacities are noted within the lung bases consistent with probable pneumonia. Clinical correl ation is recommended. The heart is top normal in size. There is persistent mixed sclerotic and lyti c lesion involving the left humeral head. CONCLUSION: 1. Bibasilar patchiness consistent with probable pneumonia. 2. Persistent mixed lytic and sclerotic lesion involving the left humeral head. MRI with contrast m ay be helpful for further evaluation of this lesion if not already performed. Joao Barrett MD on October 28, 2016 at 13:52 Board Certified Radiologist. This report was verified electronically.
[2016-10-28] MEDS: MORPHINE SULFATE 4 MG/ML INJ IV PUSH PRN ×2 (14:12→20:08)
[2016-10-28] MEDS: ENOXAPARIN SODIUM 40 MG/0.4 ML SYRINGE SQ SCH (14:12)
[2016-10-28] MEDS: PANTOPRAZOLE SOD 40 MG DELAYED RELEASE TAB PO SCH (14:13)
[2016-10-28 16:00] VITALS: BP 95/69; PULSE 73; RESP 19; TEMP 97.7; O2SAT 94
[2016-10-28 20:00] VITALS: BP 109/76; PULSE 70; RESP 16; TEMP 98.3; O2SAT 96
[2016-10-29] VITALS: BP 98/68; PULSE 67; RESP 16; TEMP 97.9; O2SAT 92
[2016-10-29] MEDS: MORPHINE SULFATE 4 MG/ML INJ IV PUSH PRN (05:28)
[2016-10-29] MEDS: metroNIDAZOLE 500 MG INJ 100 ML IV SCH (05:29)
[2016-10-29 06:06] LABS: AUTOMATED NEUTROPHIL # 7.2 TH/MM3 (1.8-7.7); BASOPHIL # 0.6 TH/MM3 (0-0.2); BASOPHIL % 4.7 % (0.0-2.0); EOSINOPHIL # 0.5 TH/MM3 (0-0.4); EOSINOPHIL % 4.1 % (0.0-4.0); LYMPH % 21.2 % (9.0-44.0); LYMPHOCYTE # 2.5 TH/MM3 (1.0-4.8); MEAN CELL VOLUME 91.3 FL (80.0-100.0); MEAN CORPUSCULAR HEMOGLOBIN 29.8 PG (27.0-34.0); MEAN CORPUSCULAR HGB CONC 32.7 % (32.0-36.0); MONO % 8.3 % (0.0-8.0); NEUT % 61.7 % (16.0-70.0); PLATELET COUNT 384 TH/MM3 (150-450); RED BLOOD COUNT 3.61 MIL/MM3 (4.00-5.30); RED CELL DISTRIBUTION WIDTH 14.6 % (11.6-17.2); WHITE BLOOD COUNT 11.8 TH/MM3 (4.0-11.0)
[2016-10-29 06:08] LABS: HEMO FLAGS DIFF FINAL
[2016-10-29 08:00] VITALS: BP 103/75; PULSE 68; RESP 18; TEMP 97.8; O2SAT 93
[2016-10-29] MEDS: DOCUSATE SODIUM 50 MG/SENNA 8.6 MG TAB PO SCH (09:25)
[2016-10-29] MEDS: SODIUM CHLORIDE 0.9% FLUSH 10 ML FLUSH IV FLUSH SCH (09:25)
[2016-10-29] MEDS: PANTOPRAZOLE SOD 40 MG DELAYED RELEASE TAB PO SCH (09:25)
[2016-10-29] MEDS ORDERED: HYDR-3516 PO (09:40)
[2016-10-29] MEDS ORDERED: PANT40TA3 PO (09:40)
[2016-10-29] MEDS ORDERED: ACET1TAB86 PO (09:40)
[2016-10-29] MEDS ORDERED: LEVA750T9 PO (09:40)
--- NOTE | 2016-10-29 09:44 | HHI.DCPOC ---
Discharge Care Plan Diagnosis: (1) Pneumonia (2) Gastritis (3) Esophagitis Goals to Promote Your Health * To prevent worsening of your condition and complications * To maintain your health at the optimal level Directions to Meet Your Goals Take your medications as prescribed Follow your dietary instruction Follow activity as directed Keep your appointments as scheduled Take your immunizations and boosters as scheduled If your symptoms worsen call your PCP, if no PCP go to Urgent Care Center or Emergency Room Smoking is Dangerous to Your Health. Avoid second hand smoke Call the 24-hour hour crisis hotline for domestic abuse at Sara Crespo MD Oct 29, 2016 09:44
--- NOTE | 2016-10-29 09:44 | HHI.DS ---
Discharge Summary Admission Date Oct 26, 2016 at 13:40 Discharge Date: Oct 29, 2016 Admitting Diagnosis pneumonia, jejunitis (1) Abdominal pain ICD Code: R10.9 (2) Pneumonia ICD Code: J18.9 (3) Transaminitis ICD Code: R74.0 (4) Leukocytosis ICD Code: D72.829 (5) Hypoxemia ICD Code: R09.02 (6) Hypotension ICD Code: I95.9 Procedures Endoscopy: Gastritis, esophagitis Brief History - From Admission 51-year-old female with a history of gastrointestinal disorders in the past, 25- pack-year history of smoking, who presents with a three-day history of lower abdominal waxing and waning, cramping pain radiating to the back. She also reports 2 day history of nausea with no vomiting, denies any diarrhea or constipation. Denies any chest pain or shortness of breath. Previous admission last year with bacterial vaginosis. Patient denies any discharge, however does report menses , moderate , over the past 2 weeks. She says she is used to having intermittent periods over the past several years sometimes months in between; she reports nothing unusual about this period. CBC/BMP: 10/29/16 0547 10/28/16 0930 Significant Findings Laboratory Tests Test 10/26/16 10/26/16 10/27/16 10/28/16 10:45 11:00 05:40 09:30 White Blood Count 30.1 TH/MM3 16.8 TH/MM3 16.9 TH/MM3 (4.0-11.0) (4.0-11.0) (4.0-11.0) Neutrophils (%) (Auto) 91.7 % 74.2 % 72.7 % (16.0-70.0) (16.0-70.0) (16.0-70.0) Lymphocytes (%) (Auto) 5.3 % (9.0-44.0) Neutrophils # (Auto) 27.6 TH/MM3 12.3 TH/MM3 12.2 TH/MM3 (1.8-7.7) (1.8-7.7) (1.8-7.7) Basophils # (Auto) 0.5 TH/MM3 1.2 TH/MM3 (0-0.2) (0-0.2) Estimat Glomerular Filtration 68 ML/MIN (>89) 82 ML/MIN (>89) 84 ML/MIN (>89) Rate Calcium Level 8.4 MG/DL 8.3 MG/DL 8.2 MG/DL (8.5-10.1) (8.5-10.1) (8.5-10.1) Aspartate Amino Transf 120 U/L (15-37) 50 U/L (15-37) (AST/SGOT) Alanine Aminotransferase 82 U/L (10-53) (ALT/SGPT) Alkaline Phosphatase 141 U/L 132 U/L 122 U/L (45-117) (45-117) (45-117) Albumin 3.1 GM/DL 2.4 GM/DL 2.5 GM/DL (3.4-5.0) (3.4-5.0) (3.4-5.0) Urine Occult Blood SMALL (NEG) Red Blood Count 3.59 MIL/MM3 3.60 MIL/MM3 (4.00-5.30) (4.00-5.30) Hemoglobin 10.6 GM/DL 10.9 GM/DL (11.6-15.3) (11.6-15.3) Hematocrit 32.5 % 32.6 % (35.0-46.0) (35.0-46.0) Monocytes (%) (Auto) 8.7 % (0.0-8.0) 8.1 % (0.0-8.0) Monocytes # (Auto) 1.5 TH/MM3 1.4 TH/MM3 (0-0.9) (0-0.9) Chloride Level 112 MEQ/L 111 MEQ/L (98-107) (98-107) Total Bilirubin 1.3 MG/DL (0.2-1.0) Total Protein 5.8 GM/DL 6.2 GM/DL (6.4-8.2) (6.4-8.2) Basophils (%) (Auto) 6.9 % (0.0-2.0) Neutrophils % (Manual) 80 % (16-70) Neutrophils # (Manual) 14.0 TH/MM3 (1.8-7.7) Blood Urea Nitrogen 4 MG/DL (7-18) Test 10/29/16 05:47 White Blood Count 11.8 TH/MM3 (4.0-11.0) Red Blood Count 3.61 MIL/MM3 (4.00-5.30) Hemoglobin 10.8 GM/DL (11.6-15.3) Hematocrit 33.0 % (35.0-46.0) Monocytes (%) (Auto) 8.3 % (0.0-8.0) Eosinophils (%) (Auto) 4.1 % (0.0-4.0) Basophils (%) (Auto) 4.7 % (0.0-2.0) Monocytes # (Auto) 1.0 TH/MM3 (0-0.9) Eosinophils # (Auto) 0.5 TH/MM3 (0-0.4) Basophils # (Auto) 0.6 TH/MM3 (0-0.2) Imaging Last Impressions Chest X-Ray 10/28/16 0000 Signed Impressions: Service Date/Time: October 12:44 - CONCLUSION: 1. Bibasilar patchiness consistent with probable pneumonia. 2. Persistent mixed lytic and sclerotic lesion involving the left humeral head. MRI with contrast may be helpful for further evaluation of this lesion if not already performed. Joao Barrett MD Abdomen/Pelvis CT 10/26/16 1044 Signed Impressions: Service Date/Time: Wednesday, October 26, 2016 11:35 - CONCLUSION: 1. Posterior bibasilar patchiness consistent with possible pneumonia. Clinical correlation is recommended. 2. Mild fold thickening involving the proximal jejunum raising the possibility of mild jejunitis. Clinical correlation is recommended. 3. Uncomplicated sigmoid diverticulosis. 4. Stable hepatomegaly. 5. Stable 17 mm right renal cyst. Joao Barrett MD Liver Ultrasound 10/26/16 0000 Signed Impressions: Service Date/Time: Wednesday, October 26, 2016 14:58 - CONCLUSION: Small right renal cyst. Brian Sanders MD PE at Discharge GENERAL: This is a well-nourished, well-developed patient, complaining of abdominal pain CARDIOVASCULAR: Regular rate and rhythm without murmurs, gallops, or rubs. RESPIRATORY: Clear to auscultation. Breath sounds equal bilaterally. No wheezes , rales, or rhonchi. GASTROINTESTINAL: Abdomen soft, moderately tender, nondistended. Normal active bowel sounds MUSCULOSKELETAL: Extremities without clubbing, cyanosis, or edema. NEURO: Alert & Oriented x4 to person, place, time, situation. Moves all ext x4 Pt update on day of discharge Doing much better. Tolerating diet, leukocytosis improved. Discharge plans discussed with patient who is in agreement. Findings of endoscopy discussed with patient and medicine list reviewed with patient Hospital Course Patient is a 51-year-old female was admitted to the hospital with complaints of abdominal pain and found have abnormal CT findings. Endoscopy was performed patient was found to have gastritis and esophagitis and started on proton pump inhibitor and the positives are taken and biopsy which are still pending at the time of discharge. Patient's instructed to follow-up with the freelance operator for further results. Patient also had evidence of pneumonia and was treated for the same with antibiotics and did well. She was discharged home Pt Condition on Discharge: Good Discharge Disposition: Discharge Home Discharge Time: > 30 minutes Discharge Instructions DIET: Follow Instructions for: As Tolerated, No Restrictions Activities you can perform: Regular-No Restrictions Follow up Referrals: PCP Follow-up - 3 Weeks New Medications: Acetaminophen (Eq Acetaminophen) 325 Mg Tab 650 MG PO Q6H PRN PAIN SCALE 1 TO 2 #60 TAB Hydrocodone-Acetaminophen (Hydrocodone-Acetaminophen) 5-325 mg Tab 1 TAB PO Q4H PRN PAIN SCALE 3 TO 5 #20 TAB Levofloxacin (Levaquin) 750 Mg Tablet 750 MG PO DAILY@12 Infection #6 TAB Pantoprazole (Pantoprazole) 40 Mg Tab 40 MG PO DAILY gi #31 Ref 1 TAB Sara Crespo MD Oct 29, 2016 09:44
[2016-10-29] MEDS: LEVOFLOXACIN 750 MG TAB PO SCH (11:37)
== END 2016-10-29 13:17 | disposition home or self-care (01) | DRG 195 ==
LOC: PHED 10:26 → PHEDA 13:40 → PH3A 20:47
PROVIDERS: ADMIT Hospitalist; ATTEND Hospitalist
PROC: 0DBN8ZX Excision of Sigmoid Colon, Via Natural or Artificial Opening Endoscopic, Diagnostic (ICD-10-PCS; 2016-10-28)
PROC: 0DB58ZX Excision of Esophagus, Via Natural or Artificial Opening Endoscopic, Diagnostic (ICD-10-PCS; principal; 2016-10-28 07:30)
PROC: 0DB68ZX Excision of Stomach, Via Natural or Artificial Opening Endoscopic, Diagnostic (ICD-10-PCS; 2016-10-28 07:30)
DX: J18.9 Pneumonia, unspecified organism (principal); I95.9 Hypotension, unspecified; K20.9 Esophagitis, unspecified; K29.70 Gastritis, unspecified, without bleeding; F17.210 Nicotine dependence, cigarettes, uncomplicated; R09.02 Hypoxemia; D64.9 Anemia, unspecified; R74.0 Nonspecific elevation of levels of transaminase and lactic acid dehydrogenase [LDH]; K63.5 Polyp of colon
CPT/HCPCS: 71020; 74177; 76705; 80053; 80074; 80307; 81001; 82550; 83605; 83690; 84703; 85007; 85025; 85027; 85610; 85730; 87493; 87641; 88305; 88312; 93005; 96361; 96365; 96368; 96375; J0696; J1650; J1885; J1956; J2270; J2405; J7030; Q9967

== ENCOUNTER 2017-05-16 13:20 | Inpatient (IN) | payer MEDICAID, OTHER ==
[~2017-05-16] VITALS: Ht 162.6 cm; Wt 65.0 kg
[~2017-05-16 13:20] MED LIST changes: +ACET325T15 PO; -AUGM875T PO; +HYDR-3516 PO; +LEVA750T9 PO; -NYST500KS SWISH-SWAL; +PANT40TA3 PO; -TUMS500C PO
[2017-05-16 13:26] VITALS: BP 104/62; PULSE 87; RESP 18; TEMP 99.7; O2SAT 99
[2017-05-16 13:58] LABS: BILIRUBIN, URINE LARGE (NEG); BLOOD, URINE TRACE (NEG); GLUCOSE,URINE NEG (NEG); KETONE, URINE NEG (NEG); NITRITE,URINE NEG (NEG); URINE LEUKOCYTE ESTERASE NEG (NEG)
[2017-05-16 14:18] LABS: URINE COLOR AMBER (YELLW/STRAW)
[2017-05-16 14:23] LABS: BACTERIA, URINE RARE /hpf; HYALINE CAST, URINE 0-2 /lpf (RARE); SQUAMOUS EPITHELIAL CELL URINE 0-3 /hpf (0-5)
[2017-05-16] MEDS ORDERED: SODIUM CHLOR 0.9% 1000 ML INJ 1,000 ML IV SCH (16:04)
[2017-05-16 16:10] VITALS: O2SAT 98
--- NOTE | 2017-05-16 16:10 | PD ---
HPI Chief Complaint: Abdominal Pain Time Seen by Provider: 16:03 Travel History International Travel<30 days: No Contact w/Intl Traveler<30days: No Traveled to known affect area: No History of Present Illness HPI patient states she has had this abd discomfort for a month, but changes in severity....over last 3 days worsening, rates it 09/11, points to epigastric region, nonradiating, assoc with nausea but denies v/d. no alleviating/ aggravating factors. denies assoc factors such as fever/cp/backpain/rash/v/d all:denies pcp none pmhx: denies except for "intestinal infection" pshx: csection PFSH Past Medical History Cancer: No Cardiovascular Problems: Yes (LOW BP) Cerebrovascular Accident: No Diabetes: No Diminished Hearing: No Endocrine: No Gastrointestinal Disorders: Yes Genitourinary: Yes Immune Disorder: No Musculoskeletal: No Neurologic: No Psychiatric: No Reproductive: No Respiratory: No Immunizations Current: Yes ?: Not LMP: IRREGULAR PER PT. 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 Reported Meds & Prescriptions Reported Meds & Active Scripts Active Pantoprazole (Pantoprazole Sodium) 40 Mg Tab 40 Mg PO DAILY Levaquin (Levofloxacin) 750 Mg Tablet 750 Mg PO DAILY@12 Hydrocodone-Acetaminophen 5-325 mg Tab 1 Tab PO Q4H PRN Eq Acetaminophen (Acetaminophen) 325 Mg Tab 650 Mg PO Q6H PRN Review of Systems Except as stated in HPI: all other systems reviewed are Neg General / Constitutional: No: Fever Eyes: No: Visual changes HENT: No: Headaches Cardiovascular: No: Chest Pain or Discomfort Respiratory: No: Shortness of Breath Gastrointestinal: Positive: Nausea, Abdominal Pain Genitourinary: No: Dysuria Musculoskeletal: No: Pain Skin: No Rash Neurologic: No: Weakness Psychiatric: No: Depression Endocrine: No: Polydipsia Hematologic/Lymphatic: No: Easy Bruising Physical Exam Narrative GENERAL: SKIN: Warm and dry. HEAD: Atraumatic. Normocephalic. EYES: Pupils equal and round. No scleral icterus. No injection or drainage. ENT: No nasal bleeding or discharge. Mucous membranes pink and moist. NECK: Trachea midline. No JVD. CARDIOVASCULAR: Regular rate and rhythm. RESPIRATORY: No accessory muscle use. Clear to auscultation. Breath sounds equal bilaterally. GASTROINTESTINAL: Abdomen soft,mild epig ttp, nondistended. Hepatic and splenic margins not palpable. MUSCULOSKELETAL: Extremities without clubbing, cyanosis, or edema. No obvious deformities. NEUROLOGICAL: Awake and alert. No obvious cranial nerve deficits. Motor grossly within normal limits. Five out of 5 muscle strength in the arms and legs. Normal speech. PSYCHIATRIC: Appropriate mood and affect; insight and judgment normal. Data Data Last Documented VS Vital Signs Date Time Temp Pulse Resp B/P (MAP) Pulse Ox O2 Delivery O2 Flow Rate FiO2 05/16/17 18:30 70 16 111/69 (83) 97 Room Air 05/16/17 13:26 99.7 Orders Orders Urinalysis - C+S If Indicated (05/16/17 13:36) Ed Urine Pregnancytest Poc (05/16/17 13:36) Complete Blood Count With Diff (05/16/17 16:04) Comprehensive Metabolic Panel (05/16/17 16:04) Lipase (05/16/17 16:04) Ct Abd/Pel W/O Iv Contrast (05/16/17 16:04) Us Abdomen Gallbladder (05/16/17 ) Iv Access Insert/Monitor (05/16/17 16:04) Ecg Monitoring (05/16/17 16:04) Oximetry (05/16/17 16:04) NPO (05/16/17 16:04) Morphine Inj (Morphine Inj) (05/16/17 16:15) Ondansetron Inj (Zofran Inj) (05/16/17 16:15) Sodium Chlor 0.9% 1000 Ml Inj (Ns 1000 M (05/16/17 16:04) Electrocardiogram (05/16/17 16:10) Ckmb (Isoenzyme) Profile (05/16/17 16:10) D-Dimer (05/16/17 16:10) Troponin I (05/16/17 16:10) Morphine Inj (Morphine Inj) (05/16/17 18:30) Ondansetron Inj (Zofran Inj) (05/16/17 18:30) Admit Order (Ed Use Only) (05/16/17 18:27) Labs Laboratory Tests Test 05/16/17 06:10 05/16/17 13:30 05/16/17 16:10 White Blood Count 17.3 TH/MM3 Red Blood Count 4.74 MIL/MM3 Hemoglobin 14.0 GM/DL Hematocrit 41.6 % Mean Corpuscular Volume 87.8 FL Mean Corpuscular Hemoglobin 29.6 PG Mean Corpuscular Hemoglobin Concent 33.7 % Red Cell Distribution Width 14.3 % Platelet Count 405 TH/MM3 Mean Platelet Volume 8.2 FL Neutrophils (%) (Auto) 72.7 % Lymphocytes (%) (Auto) 14.4 % Monocytes (%) (Auto) 6.1 % Eosinophils (%) (Auto) 2.5 % Basophils (%) (Auto) 4.3 % Neutrophils # (Auto) 12.6 TH/MM3 Lymphocytes # (Auto) 2.5 TH/MM3 Monocytes # (Auto) 1.1 TH/MM3 Eosinophils # (Auto) 0.4 TH/MM3 Basophils # (Auto) 0.7 TH/MM3 CBC Comment DIFF FINAL Differential Comment Urine Collection Type CLEAN CATCH Urine Color TANI Urine Turbidity CLEAR Urine pH 6.0 Urine Specific [place] 1.010 Urine Protein TRACE mg/dL Urine Glucose (UA) NEG mg/dL Urine Ketones NEG mg/dL Urine Occult Blood TRACE Urine Nitrite NEG Urine Bilirubin LARGE Urine Leukocyte Esterase NEG Urine WBC 3-5 /hpf Urine Squamous Epithelial Cells 0-3 /hpf Urine Bacteria RARE /hpf Urine Hyaline Casts 0-2 /lpf Urine White Blood Cell Casts 3-5 /lpf Microscopic Urinalysis Comment CULT NOT INDICATED D-Dimer Quantitative (PE/DVT) 0.60 MG/L FEU Blood Urea Nitrogen 8 MG/DL Creatinine 0.95 MG/DL Random Glucose 90 MG/DL Total Protein 7.8 GM/DL Albumin 3.4 GM/DL Calcium Level 9.2 MG/DL Alkaline Phosphatase 498 U/L Aspartate Amino Transf (AST/SGOT) 205 U/L Alanine Aminotransferase (ALT/SGPT) 460 U/L Total Bilirubin 6.0 MG/DL Sodium Level 133 MEQ/L Potassium Level 3.6 MEQ/L Chloride Level 101 MEQ/L Carbon Dioxide Level 24.2 MEQ/L Anion Gap 8 MEQ/L Estimat Glomerular Filtration Rate 62 ML/MIN Total Creatine Kinase 22 U/L Troponin I LESS THAN 0.02 NG/ML Lipase 83 U/L [facility] Medical Decision Making Medical Screen Exam Complete: Yes Emergency Medical Condition: Yes Medical Record Reviewed: Yes Interpretation(s) nsr 71, nl intervals, no stemi pattern. pulse ox has excellent pleth wave, 97% ra which is within normal limits Differential Diagnosis pancreatitis v colitis v divertic v atypical stemi Narrative Course due to elevated lft's and bili, pattern c/w obstructive hepatitis vs infectious hepatitis.....ct neg for colitis/diverticulitys .....it is prudent for patient to be admitted for further evaluation and treatment Diagnosis Primary Impression: obstructive hepatitis Admitting Information Admitting Physician Requests: Observation Ko Jarquin MD May 16, 2017 16:10
[2017-05-16] MEDS ORDERED: MORPHINE SULFATE 4 MG/ML INJ IV PUSH ONE ×2 (16:15→18:30)
[2017-05-16] MEDS ORDERED: ONDANSETRON HCL 4 MG/2 ML VIAL IVP ONE ×2 (16:15→18:30)
[2017-05-16 16:18] LABS: AUTOMATED NEUTROPHIL # 12.6 TH/MM3 (1.8-7.7); BASOPHIL # 0.7 TH/MM3 (0-0.2); BASOPHIL % 4.3 % (0.0-2.0); EOSINOPHIL # 0.4 TH/MM3 (0-0.4); EOSINOPHIL % 2.5 % (0.0-4.0); HEMATOCRIT 41.6 % (35.0-46.0); LYMPH % 14.4 % (9.0-44.0); LYMPHOCYTE # 2.5 TH/MM3 (1.0-4.8); MEAN CELL VOLUME 87.8 FL (80.0-100.0); MEAN CORPUSCULAR HEMOGLOBIN 29.6 PG (27.0-34.0); MEAN CORPUSCULAR HGB CONC 33.7 % (32.0-36.0); MEAN PLATELET VOLUME 8.2 FL (7.0-11.0); MONO % 6.1 % (0.0-8.0); MONOCYTE # 1.1 TH/MM3 (0-0.9); NEUT % 72.7 % (16.0-70.0); PLATELET COUNT 405 TH/MM3 (150-450); RED BLOOD COUNT 4.74 MIL/MM3 (4.00-5.30); RED CELL DISTRIBUTION WIDTH 14.3 % (11.6-17.2); WHITE BLOOD COUNT 17.3 TH/MM3 (4.0-11.0)
[2017-05-16 16:30] LABS: CHLORIDE 101 MEQ/L (98-107); SODIUM (NA) 133 MEQ/L (136-145)
[2017-05-16 16:34] LABS: ALBUMIN 3.4 GM/DL (3.4-5.0); CALCIUM 9.2 MG/DL (8.5-10.1)
[2017-05-16 16:35] LABS: BICARBONATE 24.2 MEQ/L (21.0-32.0); BLOOD UREA NITROGEN 8 MG/DL (7-18); GLUCOSE,RANDOM 90 MG/DL (74-106)
[2017-05-16 16:37] LABS: ALT (GPT) 460 U/L (10-53); AST (GOT) 205 U/L (15-37)
[2017-05-16 16:38] LABS: CREATININE 0.95 MG/DL (0.50-1.00); GLOMERULAR FILTRATION RATE 62 ML/MIN (>89)
[2017-05-16 16:39] LABS: TOTAL PROTEIN 7.8 GM/DL (6.4-8.2)
[2017-05-16 16:40] LABS: ALKALINE PHOSPHATASE 498 U/L (45-117)
[2017-05-16 16:53] LABS: TROPONIN I LESS THAN 0.02 NG/ML (0.02-0.05)
--- NOTE | 2017-05-16 17:14 | RADRPT ---
EXAM DATE/TIME: 05/16/2017 16:45 [facility] COMPARISON: No previous studies available for comparison. INDICATIONS : Non-specific abdominal pain with nausea and constipation. Evaluate for renal stone. ORAL CONTRAST: No oral contrast ingested. RADIATION DOSE: 7.36 CTDIvol (mGy) MEDICAL HISTORY : Hypotension. SURGICAL HISTORY : Tubal ligation. section. ENCOUNTER: Initial ACUITY: 1 day PAIN SCALE: 4/10 LOCATION: pelvis abdomen TECHNIQUE: Volumetric scanning of the abdomen and pelvis was performed. Using automated exposure control and ad justment of the mA and/or kV according to patient size, radiation dose was kept as low as reasonably achievable to obtain optimal diagnostic quality images. DICOM format image data is available electro nically for review and comparison. FINDINGS: Lung base is are clear. The liver, spleen, pancreas and adrenal glands unremarkable Right kidney: Low-density 1.7 cm mass in the parenchyma of the kidney nonspecific There are no stones Left kidney: The left kidney is unremarkable There are no calcifications along expected course of the right or left usual ureter In the pelvis the uterus is prominent. Scattered phleboliths are noted. There is no free fluid. Th ere is no adenopathy. CONCLUSION: 1.7 cm low-density mass right kidney incompletely evaluated on today's exam without c ontrast There are no renal stones. There is no significant stool. Jorden Monahan MD FACR on May 16, 2017 at 17:09 Board Certified Radiologist. This report was verified electronically.
[2017-05-16 17:28] VITALS: BP 112/75; PULSE 79; RESP 16; O2SAT 98
--- NOTE | 2017-05-16 18:01 | RADRPT ---
EXAM DATE/TIME: 05/16/2017 17:15 [facility] COMPARISON: US ABDOMEN - GALLBLADDER, October 10, 2015, 15:27. INDICATIONS : Right upper quadrant pain. MEDICAL HISTORY : Low blood pressure. UTI. Tobacco use. MRSA. SURGICAL HISTORY : section. Tubal ligation. Left shoulder surgery for benign tumor. ENCOUNTER: Initial ACUITY: 2 weeks PAIN SCORE: 8/10 LOCATION: Right upper quadrant MEASUREMENTS: LIVER: 18.9 cm length COMMON DUCT: 3 mm RIGHT KIDNEY: 11.8 x 5.7 x 4.6 cm FINDINGS: LIVER: Normal echotexture without focal lesion or ductal dilatation. COMMON DUCT: No intraluminal mass or stone visualized. GALLBLADDER: Multiple echogenic, non-mobile mural nodules probably represent small polyps PANCREAS: The visualized portions are within normal limits. RIGHT KIDNEY: No evidence of hydronephrosis, stone, or mass. Stable right renal cyst in the lower pole measures 1. 0 x 2.2 x 1.6 cm. CONCLUSION: 1. Probable gallbladder polyps. 2. Stable right renal cyst in the lower pole. 3. Otherwise negative. Melecio Enriquez MD on May 16, 2017 at 17:57 Board Certified Radiologist. This report was verified electronically.
[2017-05-16 18:30] VITALS: BP 111/69; PULSE 70; RESP 16; O2SAT 97
[2017-05-16] MEDS: SODIUM CHLOR 0.45% 1000 ML INJ 1,000 ML IV SCH (20:53)
[2017-05-16] MEDS: BISACODYL 10 MG SUPP RECTAL SCH (21:00)
[2017-05-16 21:01] VITALS: BP 111/68; PULSE 83; RESP 18; O2SAT 97
[2017-05-16 22:15] VITALS: BP 110/63; PULSE 83; RESP 20; TEMP 100.4; O2SAT 96
[2017-05-16] MEDS ORDERED: IBUPROFEN 400 MG TAB PO PRN (22:30)
[2017-05-16] MEDS: CIPROFLOXACIN 400 MG PREMIX 200 ML IV SCH (22:50)
[2017-05-16] MEDS: metroNIDAZOLE 500 MG INJ 100 ML IV SCH (22:50)
[2017-05-17 04:00] VITALS: BP 85/52; PULSE 71; RESP 20; TEMP 98.8; O2SAT 95
[2017-05-17] MEDS ORDERED: SODIUM CHLOR 0.9% 1000 ML INJ 1,000 ML IV ONE (04:45)
--- NOTE | 2017-05-17 05:06 | RADRPT ---
EXAM DATE/TIME: 05/17/2017 04:43 [facility] COMPARISON: CHEST PA & LAT, October 28, 2016, 12:44. INDICATIONS : Fever. Cough. MEDICAL HISTORY : Hypotension. SURGICAL HISTORY : None. ENCOUNTER: Initial ACUITY: 1 day PAIN SCORE: 0/10 LOCATION: Bilateral chest FINDINGS: There is mild interstitial infiltrate bilaterally. There is left lower lobe airspace disease. Cardiom egaly. Osseous structures are intact. CONCLUSION: Mild interstitial infiltrate in left lower lobe airspace disease. Josué Burkett MD on May 17, 2017 at 5:03 Board Certified Radiologist. This report was verified electronically.
[2017-05-17] MEDS: metroNIDAZOLE 500 MG INJ 100 ML IV SCH ×3 (06:00→21:21)
[2017-05-17 06:44] LABS: AUTOMATED NEUTROPHIL # 18.3 TH/MM3 (1.8-7.7); BASOPHIL # 0.2 TH/MM3 (0-0.2); BASOPHIL % 0.9 % (0.0-2.0); EOSINOPHIL # 0.6 TH/MM3 (0-0.4); EOSINOPHIL % 2.6 % (0.0-4.0); HEMOGLOBIN 13.1 GM/DL (11.6-15.3); LYMPH % 8.2 % (9.0-44.0); LYMPHOCYTE # 1.8 TH/MM3 (1.0-4.8); MEAN CELL VOLUME 88.9 FL (80.0-100.0); MEAN CORPUSCULAR HGB CONC 32.7 % (32.0-36.0); MONO % 6.9 % (0.0-8.0); MONOCYTE # 1.6 TH/MM3 (0-0.9); NEUT % 81.4 % (16.0-70.0); PLATELET COUNT 374 TH/MM3 (150-450); RED CELL DISTRIBUTION WIDTH 14.5 % (11.6-17.2); WHITE BLOOD COUNT 22.5 TH/MM3 (4.0-11.0)
[2017-05-17 06:56] LABS: CHLORIDE 102 MEQ/L (98-107); SODIUM (NA) 134 MEQ/L (136-145)
[2017-05-17 07:10] LABS: ALKALINE PHOSPHATASE 443 U/L (45-117); ALT (GPT) 329 U/L (10-53); AST (GOT) 129 U/L (15-37); BICARBONATE 21.4 MEQ/L (21.0-32.0); BLOOD UREA NITROGEN 8 MG/DL (7-18); CALCIUM 8.1 MG/DL (8.5-10.1); CREATININE 0.76 MG/DL (0.50-1.00); GLOMERULAR FILTRATION RATE 80 ML/MIN (>89); GLUCOSE,RANDOM 76 MG/DL (74-106); TOTAL BILIRUBIN ADULT 8.2 MG/DL (0.2-1.0); TOTAL PROTEIN 7.2 GM/DL (6.4-8.2)
[2017-05-17 08:44] VITALS: BP 94/64; PULSE 80; RESP 18; TEMP 98; O2SAT 97
[2017-05-17] MEDS: BISACODYL 10 MG SUPP RECTAL SCH (09:00)
[2017-05-17] MEDS: CIPROFLOXACIN 400 MG PREMIX 200 ML IV SCH ×2 (11:45→21:21)
[2017-05-17] MEDS: SODIUM CHLOR 0.45% 1000 ML INJ 1,000 ML IV SCH ×2 (11:45→21:27)
[2017-05-17 12:26] VITALS: BP 86/58; PULSE 78; RESP 16; TEMP 98.7; O2SAT 96
--- NOTE | 2017-05-17 15:37 | HHI.HP ---
[facility] Primary Care Physician No Primary Care Physician Admission Diagnosis OBSTRUCTIVE HEPATITIS,ABD PAIN Diagnoses: (1) Abdominal pain (2) Hypotension (3) Leukocytosis (4) Sepsis Chief Complaint: Abdominal pain Travel History International Travel<30 Days: No Contact w/Intl Traveler <30 Da: No Traveled to Known Affected Are: No Sepsis Criteria SIRS Criteria (2 or more): WBC > 92480, < 4000 or > 10% bands History of Present Illness The patient is a 52-year-old female who presented with worsening abdominal pain that started about a month ago, but has been worsening significantly over the past 3 days. She reports nausea and vomiting. Denies diarrhea or constipation. She reports fever, chills, and night sweats. She states that this feels like the pain she had with her 2 prior hospitalizations for GI infections. Review of Systems Constitutional: COMPLAINS OF: Fever, Chills, Night Sweats Eyes: DENIES: Blurred vision, Vision loss Ears, nose, mouth, throat: DENIES: Hearing loss Respiratory: DENIES: Cough, Wheezing, Sputum production, Shortness of breath Cardiovascular: DENIES: Chest pain, Palpitations, Dyspnea on Exertion, Lower Extremity Edema Gastrointestinal: COMPLAINS OF: Abdominal pain, Nausea, Vomiting, DENIES: Constipation, Diarrhea Genitourinary: DENIES: Urinary frequency, Urinary incontinence, Urgency, Hematuria, Dysuria, Nocturia Musculoskeletal: DENIES: Joint pain, Muscle aches Integumentary: DENIES: Pruritus, Rash Hematologic/lymphatic: DENIES: Bruising Neurologic: DENIES: Headache Past Family Social History Past Medical History Patient reports history of low blood pressure. Past Surgical History section Tubal ligation Reported Medications Pantoprazole (Pantoprazole Sodium) 40 Mg Tab 40 Mg PO DAILY Levaquin (Levofloxacin) 750 Mg Tablet 750 Mg PO DAILY@12 Hydrocodone-Acetaminophen 5-325 mg Tab 1 Tab PO Q4H PRN Eq Acetaminophen (Acetaminophen) 325 Mg Tab 650 Mg PO Q6H PRN Allergies: Coded Allergies: *MDRO Multi-Drug Resistant Organism (Verified Adverse Reaction, Unknown, MRSA, 05/16/17) MRSA (toe) - 11/20/14 Family History Patient denies significant family medical history. Social History Smokes 1 pack per day. Reports occasional alcohol use. Denies illicit drug use. Physical Exam Vital Signs Vital Signs Date Time Temp Pulse Resp B/P (MAP) Pulse Ox O2 Delivery O2 Flow Rate FiO2 05/17/17 12:26 98.7 78 16 86/58 (67) 96 05/17/17 08:44 98.0 80 18 94/64 (74) 97 05/17/17 04:00 98.8 71 20 85/52 (63) 95 05/16/17 22:18 05/16/17 22:15 100.4 83 20 110/63 (79) 96 05/16/17 21:01 83 18 111/68 (82) 97 Room Air 05/16/17 18:30 70 16 111/69 (83) 97 Room Air 05/16/17 17:28 79 16 112/75 (87) 98 Room Air 05/16/17 16:10 98 Room Air Physical Exam GENERAL: This is a well-nourished, well-developed patient, in no apparent distress. Appears uncomfortable. SKIN: No rashes, ecchymoses or lesions. Cool and dry. Jaundiced. HEAD: Atraumatic. Normocephalic. No temporal or scalp tenderness. EYES: Pupils equal round and reactive. Extraocular motions intact. Mild scleral icterus is noted. No injection or drainage. ENT: Nose without bleeding, purulent drainage or septal hematoma. Throat without erythema, tonsillar hypertrophy or exudate. Uvula midline. Airway patent. NECK: Trachea midline. Supple, nontender, no meningeal signs. CARDIOVASCULAR: Regular rate and rhythm without murmurs, gallops, or rubs. RESPIRATORY: Clear to auscultation. Breath sounds equal bilaterally. No wheezes , rales, or rhonchi. GASTROINTESTINAL: Abdomen soft, diffusely tender to palpation without rebound or guarding, nondistended. MUSCULOSKELETAL: Extremities without clubbing, cyanosis, or edema. No joint tenderness, effusion, or edema noted. No calf tenderness. NEUROLOGICAL: Awake and alert. Motor and sensory grossly within normal limits. Normal speech. Laboratory Laboratory Tests Test 05/16/17 16:10 05/17/17 06:10 D-Dimer Quantitative (PE/DVT) 0.60 Blood Urea Nitrogen 8 8 Creatinine 0.95 0.76 Random Glucose 90 76 Total Protein 7.8 7.2 Albumin 3.4 3.0 Calcium Level 9.2 8.1 Alkaline Phosphatase 498 443 Aspartate Amino Transf (AST/SGOT) 205 129 Alanine Aminotransferase (ALT/SGPT) 460 329 Total Bilirubin 6.0 8.2 Sodium Level 133 134 Potassium Level 3.6 4.2 Chloride Level 101 102 Carbon Dioxide Level 24.2 21.4 Anion Gap 8 11 Estimat Glomerular Filtration Rate 62 80 Total Creatine Kinase 22 Troponin I LESS THAN 0.02 Lipase 83 White Blood Count 22.5 Red Blood Count 4.50 Hemoglobin 13.1 Hematocrit 40.0 Mean Corpuscular Volume 88.9 Mean Corpuscular Hemoglobin 29.0 Mean Corpuscular Hemoglobin Concent 32.7 Red Cell Distribution Width 14.5 Platelet Count 374 Mean Platelet Volume 9.0 Neutrophils (%) (Auto) 81.4 Lymphocytes (%) (Auto) 8.2 Monocytes (%) (Auto) 6.9 Eosinophils (%) (Auto) 2.6 Basophils (%) (Auto) 0.9 Neutrophils # (Auto) 18.3 Lymphocytes # (Auto) 1.8 Monocytes # (Auto) 1.6 Eosinophils # (Auto) 0.6 Basophils # (Auto) 0.2 CBC Comment AUTO DIFF Differential Comment AUTO DIFF CONFIRMED Date/Time Source Procedure Growth Status 05/16/17 21:02 Blood Peripheral Aerobic Blood Culture - Preliminary NO GROWTH IN 1 DAY Resulted 05/16/17 21:02 Blood Peripheral Anaerobic Blood Culture - Preliminary NO GROWTH IN 1 DAY Resulted Result Diagram: 05/17/17 0610 05/17/17 0610 Imaging Last Impressions Chest X-Ray 05/17/17 0000 Signed Impressions: Service Date/Time: Wednesday, May 17, 2017 04:43 - CONCLUSION: Mild interstitial infiltrate in left lower lobe airspace disease. Josué Burkett MD Abdomen/Pelvis CT 05/16/17 1604 Signed Impressions: Service Date/Time: Tuesday, May 16, 2017 16:45 - CONCLUSION: 1.7 cm low-density mass right kidney incompletely evaluated on today's exam without contrast There are no renal stones. There is no significant stool. Jorden Monahan MD FACR Gall Bladder Ultrasound 05/16/17 0000 Signed Impressions: Service Date/Time: Tuesday, May 16, 2017 17:15 - CONCLUSION: 1. Probable gallbladder polyps. 2. Stable right renal cyst in the lower pole. 3. Otherwise negative. MD Zohreh Zhao VTE Risk Assessment Lisi VTE Risk Assessment: No/Low Risk (score <= 1) Caprini Risk Assessment Model Point Value = 1 Point Value = 2 Point Value = 3 Point Value = 5 Age 41-60 Minor surgery BMI > 25 kg/m2 Swollen legs Varicose veins or History of unexplained or recurrent spontaneous Oral contraceptives or hormone replacement Sepsis (< 1 month) Serious lung disease, including pneumonia (< 1 month) Abnormal pulmonary function Acute myocardial infarction Congestive heart failure (< 1 month) History of inflammatory bowel disease Medical patient at bed rest Age 61-74 Arthroscopic surgery Major open surgery (> 45 min) Laparoscopic surgery (> 45 min) Malignancy Confined to bed (> 72 hours) Immobilizing plaster cast Central venous access Age >= 75 History of VTE Family history of VTE Factor V Leiden Prothrombin [id number] Lupus anticoagulant Anticardiolipin antibodies Elevated serum homocysteine Heparin-induced thrombocytopenia Other congenital or acquired thrombophilia Stroke (< 1 month) Elective arthroplasty Hip, pelvis, or leg fracture Acute spinal cord injury (< 1 month) Prophylaxis Regimen Total Risk Factor Score Risk Level Prophylaxis Regimen 0-1 Low Early ambulation 2 Moderate Order ONE of the following: *Sequential Compression Device (SCD) *Heparin 5000 units SQ BID 3-4 Higher Order ONE of the following medications: *Heparin 5000 units SQ TID *Enoxaparin/Lovenox 40 mg SQ daily (WT < 150 kg, CrCl > 30 mL/min) *Enoxaparin/Lovenox 30 mg SQ daily (WT < 150 kg, CrCl > 10-29 mL/min) *Enoxaparin/Lovenox 30 mg SQ BID (WT < 150 kg, CrCl > 30 mL/min) AND/OR *Sequential Compression Device (SCD) 5 or more Highest Order ONE of the following medications: *Heparin 5000 units SQ TID (Preferred with Epidurals) *Enoxaparin/Lovenox 40 mg SQ daily (WT < 150 kg, CrCl > 30 mL/min) *Enoxaparin/Lovenox 30 mg SQ daily (WT < 150 kg, CrCl > 10-29 mL/min) *Enoxaparin/Lovenox 30 mg SQ BID (WT < 150 kg, CrCl > 30 mL/min) AND *Sequential Compression Device (SCD) Assessment and Plan Assessment and Plan 1. Abdominal pain, elevated LFTs: Monitor labs. Bilirubin significantly elevated. Consult gastroenterology. May need MRCP. Gallbladder ultrasound shows polyps. Continue Cipro, Flagyl. Continue IV fluids. 2. Leukocytosis: Possibly due to infection. Continue antibiotics. Monitor labs. Blood cultures are pending. 3. Tobacco abuse: Counseled to quit smoking. 4. DVT prophylaxis: JIM De La Garza. Shaq Urban MD May 17, 2017 15:37
--- NOTE | 2017-05-17 17:49 | MB ---
cc: MICHAEL DALEY M.D.TAMARA DATE OF CONSULTATION: 05/17/2017 REASON FOR CONSULTATION: Obstructive jaundice, elevated liver function tests. HISTORY OF PRESENT ILLNESS: Ms. Humphreys is a 52 year-old lady who states for about a month she has been having some vague abdominal pain. This progressively got worse over the last two days followed by nausea and vomiting. This prompted hospital admission. Workup in the hospital has revealed that the patient has significantly elevated liver function tests over her baseline. This has prompted GI consultation. She has midepigastric discomfort, some voluntary guarding, no rigidity at this time. There is no hematemesis or hematochezia. She is not having any fever or chills at this time. REVIEW OF SYSTEMS: Central abdominal discomfort. The patient is icteric. PAST MEDICAL HISTORY: Pneumonia in October of last year. She has been admitted to the hospital in October of last year, had minimal elevation of liver function test. CT at that time had revealed some duodenitis. She had an enteroscopy with biopsy done. PAST SURGICAL HISTORY: , tubal ligation. MEDICATIONS 1. Pantoprazole. 2. Levaquin. 3. Hydrocodone. 4. Acetaminophen. ALLERGIES None documented. FAMILY HISTORY Noncontributory. SOCIAL HISTORY The patient is a smoker. Occasional alcohol. PHYSICAL EXAMINATION: The physical examination reveals a well-nourished lady in no apparent distress. Vital signs: Stable. Head and neck: Anicteric sclerae. Chest: Bilateral air entry. Abdomen: Soft, mid epigastric tenderness. Bowel sounds are present. PUBLIC HEALTH: Nonfocal. RECTAL: Deferred. LABORATORY DATA: Reveal an ultrasound which shows a small gallbladder polyp, otherwise negative. Liver appears normal on the ultrasound. CT of the abdomen and pelvis without contrast, also essentially unremarkable. There is a 1.7 cm lower density mass in the right kidney which is incompletely evaluated on this exam. Labs reveal white cell count of 22,000, hemoglobin 13, total bilirubin 8.2, AST 129, ALT 329, alkaline phosphatase 443. IMPRESSION: Cholestatic jaundice, elevated liver function tests. RECOMMENDATIONS: The etiology of this is not clear. I am recommending an MRCP. I am recommending hepatitis profile, Tylenol levels have been ordered. The patient does not give any obvious risk factors. Further recommendations will be made based on the above. This has been discussed with Dr. Urban. Thank you for the referral. MD RUBINA Whitfield/MARYCHUY /4:24 PM /5:28 PM
[2017-05-17 18:29] VITALS: BP 99/59; PULSE 80; RESP 16; TEMP 98.5; O2SAT 97
--- NOTE | 2017-05-17 19:18 | EKG ---
Date Performed: 05/16/2017 Time Performed: 16:33:01 PTAGE: 52 years EKG: Sinus rhythm NORMAL ECG Since the prior tracing, there has been no significant change PREVIOUS TRACING : 10/28/2016 05.48 DOCTOR: Bhavesh Cm Interpretating Date/Time 05/17/2017 19:18:03
[2017-05-17 20:00] VITALS: BP 100/57; PULSE 78; RESP 20; TEMP 98.1; O2SAT 97
[2017-05-18] VITALS: BP 95/50; PULSE 72; RESP 20; TEMP 96.5; O2SAT 96
[2017-05-18] MEDS: MORPHINE SULFATE 2 MG/ML INJ IV PUSH PRN ×4 (01:41→22:14)
[2017-05-18] MEDS: metroNIDAZOLE 500 MG INJ 100 ML IV SCH ×3 (06:14→21:41)
[2017-05-18 07:50] VITALS: BP 96/56; PULSE 74; RESP 20; TEMP 97.3; O2SAT 95
[2017-05-18] MEDS: LEVOFLOXACIN 750 MG PREMIX INJ 150 ML IV SCH (08:49)
[2017-05-18] MEDS: SODIUM CHLOR 0.45% 1000 ML INJ 1,000 ML IV SCH ×2 (08:52→21:35)
[2017-05-18] MEDS: BISACODYL 10 MG SUPP RECTAL SCH (08:52)
[2017-05-18 10:43] LABS: HEPATITIS A AB IGM NEGATIVE (NEGATIVE); HEPATITIS B CORE AB IGM NEGATIVE (NEGATIVE); HEPATITIS B SURFACE ANTIGEN NEGATIVE (NEGATIVE); HEPATITIS C AB IgG NEGATIVE (NEGATIVE)
[2017-05-18 11:50] VITALS: BP 100/58; PULSE 68; RESP 20; TEMP 97.3; O2SAT 97
[2017-05-18] MEDS ORDERED: GADODIAMIDE PF 287 MG/ML 5 ML VIAL (for RAD MRI) IVCONTRAST ONE (13:33)
--- NOTE | 2017-05-18 13:59 | HHI.PR ---
Subjective Remarks Nursing denies any deterioration since last night. Patient however reports that the patient is actually worse. Says that she appears more yellow today. Denies any modifying factor in her pain with meals. Denies any N/V. Objective Vital Signs Date Time Temp Pulse Resp B/P (MAP) Pulse Ox O2 Delivery O2 Flow Rate FiO2 05/18/17 08:58 20 05/18/17 07:50 97.3 74 20 96/56 (69) 95 05/18/17 00:00 96.5 72 20 95/50 (65) 96 05/17/17 20:00 98.1 78 20 100/57 (71) 97 05/17/17 18:29 98.5 80 16 99/59 (72) 97 I/O 05/17/17 05/17/17 05/17/17 05/18/17 05/18/17 05/18/17 07:00 15:00 23:00 07:00 15:00 23:00 Intake Total 60 ml 700 ml 600 ml 0 ml Balance 60 ml 700 ml 600 ml 0 ml Intake Oral 60 ml 600 ml 0 ml IV Total 700 ml # Voids 2 4 3 # Bowel Movements 0 Result Diagram: 05/17/17 0610 05/17/17 0610 Objective Remarks Appears mildly jaundiced Abdomen soft, nondistended, has more tenderness to palpation over the epigastrium and left sided quadrants as opposed to the right side A/P Assessment and Plan 1. Abdominal pain - pain control; likely 2/2 hepatic or extrahepatic process, see below tx. GB US neg. CT noncontrast unrevealing. 2. Transaminitis: -Viral Hepatitis panel is negative, ordering smooth muscle antibodies to evaluate for autoimmune hepatitis. Also ordered P Anka antibody. GI following. IVFs. avoid tylenol 3. hyperbilirubinemia - possibly 2/2 ob process, f/u MRCP. may consider Questran if pruritis develops 4. Leukocytosis: Possibly due to infection. Continue antibiotics. Monitor labs. Blood cultures are pending. DVT prophylaxis: JIM De La Garza. Adam Cortez MD May 18, 2017 13:59
[2017-05-18] MEDS: PANTOPRAZOLE SOD 40 MG DELAYED RELEASE TAB PO SCH (14:00)
--- NOTE | 2017-05-18 14:19 | RADRPT ---
EXAM DATE/TIME: 05/18/2017 13:00 [facility] COMPARISON: No previous studies available for comparison. INDICATIONS : Abdominal pain. Juandice. Kidney mass. CONTRAST: 12 cc Omniscan (gadodiamide) IV MEDICAL HISTORY : Hypotension. SURGICAL HISTORY : section. Shoulder surgery. ENCOUNTER: Subsequent ACUITY: 2 day PAIN SCORE: 5/10 LOCATION: Abdomen. TECHNIQUE: Multiplanar, multisequence magnetic resonance imaging of the abdomen was performed. High-resolution 3D dataset was utilized to reconstruct maximum-intensity projection (MIP) images. FINDINGS: The portion of the liver and spleen identified are free of focal defects. Low-density lesion in the right kidney is adjacent 1.5 cm cyst by MRI. Gallbladder is not visualized, probably contracted Common duct is normal. There is no intrahepatic biliary duct dilatation. Pancreas is unremarkable. CONCLUSION: 1. Simple right renal cyst 2. Normal common duct without hepatic ductal dilatation 3. Pancreas is unremarkable. Jorden Monahan MD FACR on May 18, 2017 at 14:14 Board Certified Radiologist. This report was verified electronically.
--- NOTE | 2017-05-18 15:35 | HHI.GIFU ---
GI Follow-up Note Consult Follow-up Subjective: Patient laying in bed comfortably, no new complaints except abdominal pain. Pt. is deeply icteric Objective: PHYSICAL EXAMINATION: Vitals signs stable No fever HEENT: Pupils round and reactive to light; normocephalic; atraumatic; no jaundice. Throat is clear. NECK: Neck is supple, no JVD, no lymphadenopathy. CHEST: Chest is clear to auscultation and percussion. CARDIAC: Regular rate and rhythm with no murmur gallop or rubs. ABDOMEN: Soft, nondistended, nontender; no hepatosplenomegaly; bowel sounds are present in all four quadrants. EXTREMITIES: No clubbing, cyanosis, or edema. SKIN: Normal; no rash; no jaundice. [employer]: No focal deficits; alert and oriented times three. Available Data (labs, X- Rays, Procedues) : Last Impressions Cholangiopancreatography MRI 05/18/17 0000 Signed Impressions: Service Date/Time: Thursday, May 18, 2017 13:00 - CONCLUSION: 1. Simple right renal cyst 2. Normal common duct without hepatic ductal dilatation 3. Pancreas is unremarkable. Jorden Monahan MD FACR Chest X-Ray 05/17/17 0000 Signed Impressions: Service Date/Time: Wednesday, May 17, 2017 04:43 - CONCLUSION: Mild interstitial infiltrate in left lower lobe airspace disease. Josué Burkett MD Abdomen/Pelvis CT 05/16/17 1604 Signed Impressions: Service Date/Time: Tuesday, May 16, 2017 16:45 - CONCLUSION: 1.7 cm low-density mass right kidney incompletely evaluated on today's exam without contrast There are no renal stones. There is no significant stool. Jorden Monahan MD FACR Gall Bladder Ultrasound 05/16/17 0000 Signed Impressions: Service Date/Time: Tuesday, May 16, 2017 17:15 - CONCLUSION: 1. Probable gallbladder polyps. 2. Stable right renal cyst in the lower pole. 3. Otherwise negative. Melecio Enriquez MD Laboratory Tests Test 05/16/17 16:10 05/17/17 06:10 05/17/17 17:44 D-Dimer Quantitative (PE/DVT) 0.60 MG/L FEU Blood Urea Nitrogen 8 MG/DL 8 MG/DL Creatinine 0.95 MG/DL 0.76 MG/DL Random Glucose 90 MG/DL 76 MG/DL Total Protein 7.8 GM/DL 7.2 GM/DL Albumin 3.4 GM/DL 3.0 GM/DL Calcium Level 9.2 MG/DL 8.1 MG/DL Alkaline Phosphatase 498 U/L 443 U/L Aspartate Amino Transf (AST/SGOT) 205 U/L 129 U/L Alanine Aminotransferase (ALT/SGPT) 460 U/L 329 U/L Total Bilirubin 6.0 MG/DL 8.2 MG/DL Sodium Level 133 MEQ/L 134 MEQ/L Potassium Level 3.6 MEQ/L 4.2 MEQ/L Chloride Level 101 MEQ/L 102 MEQ/L Carbon Dioxide Level 24.2 MEQ/L 21.4 MEQ/L Anion Gap 8 MEQ/L 11 MEQ/L Estimat Glomerular Filtration Rate 62 ML/MIN 80 ML/MIN Total Creatine Kinase 22 U/L Troponin I LESS THAN 0.02 NG/ML Lipase 83 U/L White Blood Count 22.5 TH/MM3 Red Blood Count 4.50 MIL/MM3 Hemoglobin 13.1 GM/DL Hematocrit 40.0 % Mean Corpuscular Volume 88.9 FL Mean Corpuscular Hemoglobin 29.0 PG Mean Corpuscular Hemoglobin Concent 32.7 % Red Cell Distribution Width 14.5 % Platelet Count 374 TH/MM3 Mean Platelet Volume 9.0 FL Neutrophils (%) (Auto) 81.4 % Lymphocytes (%) (Auto) 8.2 % Monocytes (%) (Auto) 6.9 % Eosinophils (%) (Auto) 2.6 % Basophils (%) (Auto) 0.9 % Neutrophils # (Auto) 18.3 TH/MM3 Lymphocytes # (Auto) 1.8 TH/MM3 Monocytes # (Auto) 1.6 TH/MM3 Eosinophils # (Auto) 0.6 TH/MM3 Basophils # (Auto) 0.2 TH/MM3 CBC Comment AUTO DIFF Differential Comment AUTO DIFF CONFIRMED Acetaminophen Level LESS THAN 2.0 MCG/ML Hepatitis A IgM Antibody NEGATIVE Hepatitis B Surface Antigen NEGATIVE Hepatitis B Core IgM Antibody NEGATIVE Hepatitis C Antibody NEGATIVE Allergies Coded Allergies Type Severity Reaction Last Updated Verified *MDRO Multi-Drug Resistant Organism Adverse Reaction Unknown MRSA 05/16/17 Yes Active Scripts Medications Dose Route/Sig Max Daily Dose Days Date Category Pantoprazole (Pantoprazole Sodium) 40 Mg Tab 40 Mg PO DAILY 10/29/16 Rx Levaquin (Levofloxacin) 750 Mg Tablet 750 Mg PO DAILY@12 10/29/16 Rx Hydrocodone-Acetaminophen 5-325 mg Tab 1 Tab PO Q4H PRN 10/29/16 Rx Eq Acetaminophen (Acetaminophen) 325 Mg Tab 650 Mg PO Q6H PRN 10/29/16 Rx ASSESSMENT/PLAN: Seen and examined in the presence of mother. Still deeply icteric. Hepatitis profile and acetaminophen levels normal. Denies significant ETOH intake. Repeat labs from today pending. Iron profile ordered. MRCP -ve for obstruction. Await serologies, may need liver biopsy depending upon above. Discussed with pt. and mom. It was a pleasure seeing Radha Humphreys. Thank you for this consult. Entered by: Angelito Brown MD May 18, 2017 15:35
[2017-05-18 15:50] VITALS: BP 106/59; PULSE 68; RESP 20; TEMP 98.4; O2SAT 96
[2017-05-18 20:22] VITALS: BP 104/69; PULSE 83; RESP 14; TEMP 99.9; O2SAT 95
[2017-05-18] MEDS: ONDANSETRON HCL 4 MG/2 ML VIAL IV PUSH PRN (22:14)
[2017-05-18 22:16] LABS: ALBUMIN 2.8 GM/DL (3.4-5.0)
[2017-05-18 22:20] LABS: DIRECT BILIRUBIN ADULT 6.2 MG/DL (0.0-0.2)
[2017-05-18 22:21] LABS: INDIRECT BILIRUBIN 1.3 MG/DL (0.0-0.8); TOTAL BILIRUBIN ADULT 7.5 MG/DL (0.2-1.0); TOTAL PROTEIN 7.5 GM/DL (6.4-8.2)
[2017-05-19 00:59] LABS: % SATURATION IRON PROFILE 7.1 % (20-50); IRON (FE) 24 MCG/DL (50-170); TOTAL IRON BINDING CAPACITY 337 MCG/DL (250-450)
[2017-05-19 01:02] LABS: FERRITIN 106 NG/ML (8-252)
[2017-05-19 01:24] VITALS: BP 93/62; PULSE 87; RESP 12; TEMP 98.7; O2SAT 96
[2017-05-19] MEDS: metroNIDAZOLE 500 MG INJ 100 ML IV SCH (05:48)
[2017-05-19 06:35] LABS: AUTOMATED NEUTROPHIL # 8.8 TH/MM3 (1.8-7.7); BASOPHIL # 0.4 TH/MM3 (0-0.2); BASOPHIL % 3.2 % (0.0-2.0); EOSINOPHIL # 0.5 TH/MM3 (0-0.4); EOSINOPHIL % 4.2 % (0.0-4.0); HEMATOCRIT 34.9 % (35.0-46.0); HEMOGLOBIN 11.7 GM/DL (11.6-15.3); LYMPH % 15.5 % (9.0-44.0); MEAN CELL VOLUME 88.1 FL (80.0-100.0); MEAN CORPUSCULAR HEMOGLOBIN 29.7 PG (27.0-34.0); MEAN CORPUSCULAR HGB CONC 33.7 % (32.0-36.0); MEAN PLATELET VOLUME 9.3 FL (7.0-11.0); MONO % 7.6 % (0.0-8.0); NEUT % 69.5 % (16.0-70.0); PLATELET COUNT 386 TH/MM3 (150-450); RED BLOOD COUNT 3.96 MIL/MM3 (4.00-5.30); RED CELL DISTRIBUTION WIDTH 14.2 % (11.6-17.2); WHITE BLOOD COUNT 12.6 TH/MM3 (4.0-11.0)
[2017-05-19 07:13] LABS: ALBUMIN 2.4 GM/DL (3.4-5.0); ALKALINE PHOSPHATASE 416 U/L (45-117); ALT (GPT) 155 U/L (10-53); AST (GOT) 62 U/L (15-37); BICARBONATE 23.6 MEQ/L (21.0-32.0); BLOOD UREA NITROGEN 5 MG/DL (7-18); CALCIUM 8.4 MG/DL (8.5-10.1); CHLORIDE 103 MEQ/L (98-107); CREATININE 0.52 MG/DL (0.50-1.00); GLOMERULAR FILTRATION RATE 124 ML/MIN (>89); GLUCOSE,RANDOM 83 MG/DL (74-106); SODIUM (NA) 136 MEQ/L (136-145); TOTAL BILIRUBIN ADULT 6.7 MG/DL (0.2-1.0); TOTAL PROTEIN 6.4 GM/DL (6.4-8.2)
[2017-05-19 07:50] VITALS: BP 99/58; PULSE 79; RESP 20; TEMP 97.1; O2SAT 95
[2017-05-19] MEDS: BISACODYL 10 MG SUPP RECTAL SCH (08:19)
[2017-05-19] MEDS: PANTOPRAZOLE SOD 40 MG DELAYED RELEASE TAB PO SCH (08:19)
[2017-05-19] MEDS: LEVOFLOXACIN 750 MG PREMIX INJ 150 ML IV SCH (08:19)
[2017-05-19 08:22] VITALS: BP 108/68; PULSE 88
[2017-05-19] MEDS: ONDANSETRON HCL 4 MG/2 ML VIAL IV PUSH PRN (08:36)
[2017-05-19] MEDS: MORPHINE SULFATE 2 MG/ML INJ IV PUSH PRN (08:37)
[2017-05-19 11:50] VITALS: BP 103/63; PULSE 89; RESP 20; TEMP 97.1; O2SAT 96
[2017-05-19] MEDS: SODIUM CHLOR 0.45% 1000 ML INJ 1,000 ML IV SCH (14:45)
--- NOTE | 2017-05-19 14:46 | HHI.PR ---
Subjective Remarks Nursing denies any deterioration since last night reported by film or tape librarian nurse. However patient herself says sometime after she took the oxycodone, she vomited 4 times. She denies feeling nausea now during the daytime. Has been able to tolerate a little p.o. intake. She has been refusing the oxycodone and wanting the IV morphine instead; she says that she thinks the oxycodone made her feel nauseated and that is why she is refusing it. MRCP neg. Pt becomes quite distraught and tearful and says that "nobody can find out what is wrong with my liver." Objective Vital Signs Date Time Temp Pulse Resp B/P (MAP) Pulse Ox O2 Delivery O2 Flow Rate FiO2 05/19/17 11:50 97.1 89 20 103/63 (76) 96 05/19/17 08:22 88 108/68 (81) 05/19/17 07:50 97.1 79 20 99/58 (72) 95 05/19/17 01:24 98.7 87 12 93/62 (72) 96 05/18/17 20:22 99.9 83 14 104/69 (81) 95 05/18/17 15:50 98.4 68 20 106/59 (75) 96 I/O 05/18/17 05/18/17 05/18/17 05/19/17 05/19/17 05/19/17 07:00 15:00 23:00 07:00 15:00 23:00 Intake Total 0 ml 1143 ml 150 ml Balance 0 ml 1143 ml 150 ml Intake Oral 0 ml 180 ml IV Total 963 ml 150 ml # Voids 3 4 2 Result Diagram: 05/19/17 0527 05/19/17 0527 Imaging Last Impressions Cholangiopancreatography MRI 05/18/17 0000 Signed Impressions: Service Date/Time: Thursday, May 18, 2017 13:00 - CONCLUSION: 1. Simple right renal cyst 2. Normal common duct without hepatic ductal dilatation 3. Pancreas is unremarkable. Jorden Monahan MD FACR Chest X-Ray 05/17/17 0000 Signed Impressions: Service Date/Time: Wednesday, May 17, 2017 04:43 - CONCLUSION: Mild interstitial infiltrate in left lower lobe airspace disease. Josué Burkett MD Abdomen/Pelvis CT 05/16/17 1604 Signed Impressions: Service Date/Time: Tuesday, May 16, 2017 16:45 - CONCLUSION: 1.7 cm low-density mass right kidney incompletely evaluated on today's exam without contrast There are no renal stones. There is no significant stool. Jorden Monahan MD FACR Gall Bladder Ultrasound 05/16/17 0000 Signed Impressions: Service Date/Time: Tuesday, May 16, 2017 17:15 - CONCLUSION: 1. Probable gallbladder polyps. 2. Stable right renal cyst in the lower pole. 3. Otherwise negative. Melecio Enriquez MD Objective Remarks Appears jaundiced Abdomen soft, nondistended, ND mild diffuse TTP tearful at times, recover with her mood to normal mood and affect A/P Assessment and Plan 1. Abdominal pain - pain control; likely 2/2 intrinsic hepatic dx. scans neg for cause. see below 2. Transaminitis: -improving since admission w/ IVFs and time. Viral Hepatitis panel is negative, no evidence of extrahepatic dx on MRCP, CT (noncontrast), nor GB. Pending autoimmune serology. May entertain notion of liver bx. GI following. IVFs. avoid tylenol. CMP in AM 3. hyperbilirubinemia - possibly 2/2 ob process, MRCP neg for stone. starting Questran prn itching 4. Leukocytosis: improving, likely stress-induced. Stopping antibiotics as blood cultures are negative and fevers have stopped. Monitor for any recurrence of fever. DVT prophylaxis: JIM De La Garza. Adam Cortez MD May 19, 2017 14:46
[2017-05-19] MEDS ORDERED: CHOLESTYRAMINE 4 GM PACKET PO PRN (15:00)
[2017-05-19] MEDS ORDERED: MORPHINE SULFATE 30 MG TAB PO PRN (15:00)
[2017-05-19] MEDS: MORPHINE SULFATE 15 MG TAB PO PRN (15:45)
[2017-05-19 15:50] VITALS: BP 98/60; PULSE 71; RESP 20; TEMP 97.9; O2SAT 95
[2017-05-19 20:00] VITALS: BP 98/58; PULSE 79; RESP 18; TEMP 99.4; O2SAT 94
--- NOTE | 2017-05-19 20:16 | HHI.GIFU ---
Subjective Remarks Patient complains of upper abdominal pain. She is still jaundiced. She denies any fever chills. Objective Vitals I&O Vital Signs Date Time Temp Pulse Resp B/P (MAP) Pulse Ox O2 Delivery O2 Flow Rate FiO2 05/19/17 20:00 99.4 79 18 98/58 (71) 94 05/19/17 15:50 97.9 71 20 98/60 (73) 95 05/19/17 11:50 97.1 89 20 103/63 (76) 96 05/19/17 08:22 88 108/68 (81) 05/19/17 07:50 97.1 79 20 99/58 (72) 95 05/19/17 01:24 98.7 87 12 93/62 (72) 96 05/18/17 20:22 99.9 83 14 104/69 (81) 95 I/O 05/18/17 05/18/17 05/18/17 05/19/17 05/19/17 05/19/17 07:00 15:00 23:00 07:00 15:00 23:00 Intake Total 0 ml 1143 ml 150 ml 360 ml Balance 0 ml 1143 ml 150 ml 360 ml Intake Oral 0 ml 180 ml 360 ml IV Total 963 ml 150 ml # Voids 3 4 2 6 # Bowel Movements 1 Laboratory Laboratory Tests Test 05/18/17 21:50 05/19/17 05:27 Iron Level 24 Total Iron Binding Capacity 337 Percent Iron Saturation 7.1 Ferritin 106 Total Bilirubin 7.5 6.7 Direct Bilirubin 6.2 Indirect Bilirubin 1.3 Aspartate Amino Transf (AST/SGOT) 72 62 Alanine Aminotransferase (ALT/SGPT) 198 155 Alkaline Phosphatase 480 416 Total Protein 7.5 6.4 Albumin 2.8 2.4 White Blood Count 12.6 Red Blood Count 3.96 Hemoglobin 11.7 Hematocrit 34.9 Mean Corpuscular Volume 88.1 Mean Corpuscular Hemoglobin 29.7 Mean Corpuscular Hemoglobin Concent 33.7 Red Cell Distribution Width 14.2 Platelet Count 386 Mean Platelet Volume 9.3 Neutrophils (%) (Auto) 69.5 Lymphocytes (%) (Auto) 15.5 Monocytes (%) (Auto) 7.6 Eosinophils (%) (Auto) 4.2 Basophils (%) (Auto) 3.2 Neutrophils # (Auto) 8.8 Lymphocytes # (Auto) 2.0 Monocytes # (Auto) 1.0 Eosinophils # (Auto) 0.5 Basophils # (Auto) 0.4 CBC Comment DIFF FINAL Differential Comment Blood Urea Nitrogen 5 Creatinine 0.52 Random Glucose 83 Calcium Level 8.4 Sodium Level 136 Potassium Level 3.2 Chloride Level 103 Carbon Dioxide Level 23.6 Anion Gap 9 Estimat Glomerular Filtration Rate 124 Date/Time Source Procedure Growth Status 05/16/17 21:02 Blood Peripheral Aerobic Blood Culture - Preliminary NO GROWTH IN 3 DAYS Resulted 05/16/17 21:02 Blood Peripheral Anaerobic Blood Culture - Preliminary NO GROWTH IN 3 DAYS Resulted Imaging MRCP scan negative for bile obstruction. Gallbladder ultrasound shows multiple polyps. Physical Exam HEENT: Pupils round and reactive to light; normocephalic; atraumatic; no jaundice. Throat is clear. NECK: Neck is supple, no JVD, no lymphadenopathy. CHEST: Chest is clear to auscultation and percussion. CARDIAC: Regular rate and rhythm with no murmur gallop or rubs. ABDOMEN: Soft,, tenderness in the epigastrium and right upper quadrant. No guarding no rigidity. Liver palpable 3 cm below right costal margin smooth mildly tender spleen not palpable no ascites.. EXTREMITIES: No clubbing, cyanosis, or edema. SKIN: Normal; no rash; no jaundice. AUTOMOTIVE SOFTWARE ENGINEER: No focal deficits; alert and oriented times three. Assessment and Plan Assessment: (1) Gall bladder polyp ICD Codes: K82.4 - Cholesterolosis of gallbladder (2) Cholestasis ICD Codes: K83.1 - Obstruction of bile duct (3) Transaminitis ICD Codes: R74.0 - Nonspecific elevation of levels of transaminase and lactic acid dehydrogenase [LDH] Status: Acute Plan 1. Labs-antinuclear antibody, antimitochondrial antibody, ferritin, ceruloplasmin, alpha-1 antitrypsin, PT/INR 2. Schedule ultrasound/CT scan guided liver biopsy 3. HIDA scan with CCK to check for gallbladder dyskinesia. Jose Alfredo Johnson MD May 19, 2017 20:16
[2017-05-20] VITALS: BP 101/62; PULSE 77; RESP 17; TEMP 99; O2SAT 95
[2017-05-20] MEDS: MORPHINE SULFATE 15 MG TAB PO PRN ×3 (00:19→19:31)
[2017-05-20] MEDS: SODIUM CHLOR 0.45% 1000 ML INJ 1,000 ML IV SCH ×3 (05:41→17:29)
[2017-05-20 06:24] VITALS: BP 108/75; PULSE 89
[2017-05-20] MEDS: MORPHINE SULFATE 2 MG/ML INJ IV PUSH PRN (06:28)
[2017-05-20 06:38] LABS: CHLORIDE 103 MEQ/L (98-107); SODIUM (NA) 136 MEQ/L (136-145)
[2017-05-20 06:42] LABS: ALBUMIN 2.3 GM/DL (3.4-5.0); BICARBONATE 26.2 MEQ/L (21.0-32.0); BLOOD UREA NITROGEN 5 MG/DL (7-18); CALCIUM 8.1 MG/DL (8.5-10.1); GLUCOSE,RANDOM 104 MG/DL (74-106)
[2017-05-20 06:45] LABS: ALT (GPT) 120 U/L (10-53); AST (GOT) 69 U/L (15-37); CREATININE 0.69 MG/DL (0.50-1.00); GLOMERULAR FILTRATION RATE 90 ML/MIN (>89)
[2017-05-20 06:47] LABS: TOTAL BILIRUBIN ADULT 6.1 MG/DL (0.2-1.0); TOTAL PROTEIN 6.2 GM/DL (6.4-8.2)
[2017-05-20 06:48] LABS: ALKALINE PHOSPHATASE 444 U/L (45-117)
[2017-05-20 08:00] VITALS: BP 98/56; PULSE 81; RESP 20; TEMP 99.9; O2SAT 92
[2017-05-20] MEDS: PANTOPRAZOLE SOD 40 MG DELAYED RELEASE TAB PO SCH (08:37)
[2017-05-20] MEDS: BISACODYL 10 MG SUPP RECTAL SCH (08:37)
--- NOTE | 2017-05-20 11:24 | HHI.PR ---
Subjective Remarks Patient seen and examined today for follow-up on abnormal liver enzymes, jaundice. Patient resting in bed comfortably. States that she is still yellow. She is writing down all information discussed with her. I discussed with her GIs intentions to perform HIDA scan and liver biopsy to further evaluate and tried any etiology of her hepatitis. Patient states that today was the first day that she been able to tolerate anything by mouth. Objective Vitals Vital Signs Date Time Temp Pulse Resp B/P (MAP) Pulse Ox O2 Delivery O2 Flow Rate FiO2 05/20/17 08:00 99.9 81 20 98/56 (70) 92 05/20/17 06:24 89 108/75 (86) 05/20/17 00:00 99.0 77 17 101/62 (75) 95 05/19/17 20:00 99.4 79 18 98/58 (71) 94 05/19/17 15:50 97.9 71 20 98/60 (73) 95 05/19/17 11:50 97.1 89 20 103/63 (76) 96 I/O 05/19/17 05/19/17 05/19/17 05/20/17 05/20/17 05/20/17 07:00 15:00 23:00 07:00 15:00 23:00 Intake Total 150 ml 760 ml 410 ml Balance 150 ml 760 ml 410 ml Intake Oral 360 ml IV Total 150 ml 400 ml 410 ml # Voids 2 6 3 # Bowel Movements 1 Result Diagram: 05/19/17 0527 05/20/17 0600 Objective Remarks GENERAL: Well-developed, well-nourished, in no acute distress. alert and orientated HEENT: Head is normocephalic without any lesions or masses noted. Facial features are symmetric. Eyes: Extraocular muscles are intact. Conjunctivae were clear. Sclera mildly icteric NECK: Supple without any masses. Trachea midline no deviation. No JVD, CARDIAC: Regular rhythm, regular rate. S1/S2 are heard. No murmurs gallops or rubs. LUNGS: Clear to auscultation bilaterally. No wheeze, rhonchi or rales. No use of accessory muscles on inspiration or expiration. ABDOMEN: Soft, diffuse subjective abdominal tenderness. Nondistended. Bowel sounds heard in all 4 quadrants. No organomegaly or masses. Negative rebound, negative guarding EXTREMITIES: No edema, pulses are equal bilaterally. No cyanosis or clubbing NEUROLOGY: Mood and affect appear appropriate. Cranial nerves II through XII grossly intact. Moving all extremities, speech is clear Urinary Catheter: No Vascular Central Line Catheter: No A/P Assessment and Plan Abdominal pain with transaminitis, hyperbilirubinemia, possible cholestasis Workup thus far has not identified any acute etiology CT the abdomen did not indicate any acute liver abnormality. MRCP shows normal common duct without hepatic ductal dilatation gallbladder ultrasound shows probable gallbladder polyps, otherwise negative Vital hepatitis panel was unremarkable GI following the patient and recommended HIDA scan and liver biopsy, I ordered those studies today Questran was added for itching Continue pain control. Morphine sulfate 30 mg every 8 hours as needed, morphine IV every 4 hours Leukocytosis, improving Antibiotics have been discontinued, no source of infection has been identified Continue monitor CBC DVT prevention Sequential compression devices Discharge Planning Discharge planning will be with her next 48-72 hours. Awaiting HIDA scan, liver biopsy, clinical improvement Shaq Kurtz May 20, 2017 11:24
[2017-05-20 12:00] VITALS: BP 111/58; PULSE 84; RESP 20; TEMP 101.1; O2SAT 92
[2017-05-20 13:27] LABS: INTERNATIONAL NORMALIZED RATIO 1.1 RATIO; PROTHROMBIN TIME - PATIENT 10.7 SEC (9.8-11.6)
--- NOTE | 2017-05-20 15:26 | RADRPT ---
EXAM DATE/TIME: 05/20/2017 13:38 This report includes an Addendum and supersedes previous reports for this exam. [facility] COMPARISON: MRCP W & W/O CONTRAST, May 18, 2017, 13:00. BILIARY SCAN (HIDA), October 11, 2015, 10:26. INDICATIONS : Abdominal pain with nausea and vomiting for one month. DOSE: 4.1 mCi Tc99m Mebrofenin IV MEDICAL HISTORY : None SURGICAL HISTORY : Tubal ligation. section. ENCOUNTER: Initial ACUITY: 1 month PAIN SCALE: 5/10 LOCATION: Right upper quadrant TECHNIQUE: Following the intravenous administration of radiotracer, dynamic sequential images were performed wit h continuous acquisition. FINDINGS: The exam demonstrates prompt uptake of tracer within the liver. There is fairly diffuse background ac tivity suggesting poor hepatis sites function. There is no evidence of excretion to the bowel exam wo uld suggest and acute hepatitis versus obstruction of the common bile duct. Of note, there is no evid ence of biliary ductal dilation on the patient's MRCP of 05/18/17. CONCLUSION: 1. Abnormal examination demonstrating poor hepatocyte function with no significant biliary to bowel t ransit. Primary differential consideration would be an acute hepatitis since there is no evidence of ductal dilation on the patient's MRCP dated 05/18/17 2. Delayed imaging at 24 hours would be of benefit for more definitive assessment. Rodney Monahan MD on May 20, 2017 at 15:21 Board Certified Radiologist. This report was verified electronically. ADDENDUM: 20 hour delayed images demonstrate focal activity in the region of the gallbladder with persistent ac tivity throughout the liver. This confirms patency of the cystic duct and makes acute cholecystitis u nlikely. However, persistent diffuse liver activity again is consistent with hepatocyte dysfunction. Mert Canales MD on May 21, 2017 at 13:16 Board Certified Radiologist. This report was verified electronically.
--- NOTE | 2017-05-20 15:59 | PD.RAD ---
Post Procedure Progress Note Pre Procedure Diagnosis: (1) Liver failure, acute Post Procedure Diagnosis: (1) Liver failure, acute Procedure Date: May 20, 2017 Supervising Radiologist: Rodney Monahan Estimated blood loss: None Anesthesia: Local Plan of Activity Patient to Unit: Nursing Unit Patient Condition: Fair Additional Comments: CT guided liver biopsy completed without difficulty Single 18ga core sample obtained. Follow up CT negative for hemorrhage. Full dictated report to follow See PACS Report for procedural detail/treatment Rodney Monahan MD May 20, 2017 15:59
[2017-05-20] MEDS ORDERED: LIDOCAINE 1%/EPINEPHrine 1:100,000 SOLN 30 ML VIAL OTHER ONE (16:10)
[2017-05-20 16:41] VITALS: BP 95/60; PULSE 85; RESP 18; TEMP 98.2; O2SAT 92
[2017-05-20 21:35] VITALS: BP 101/66; PULSE 86; RESP 18; TEMP 99.4; O2SAT 94
[2017-05-20 22:56] LABS: FERRITIN 71 NG/ML (8-252)
[2017-05-20 23:09] LABS: % SATURATION IRON PROFILE 9.3 % (20-50); TOTAL IRON BINDING CAPACITY 302 MCG/DL (250-450)
[2017-05-20 23:14] LABS: IRON (FE) 28 MCG/DL (50-170)
[2017-05-21] VITALS (7 sets, daily range): BP systolic 84–104; BP diastolic 55–71; PULSE 59–80; RESP 16–18; TEMP 97.6–98.8; O2SAT 95–98
[2017-05-21] MEDS: SODIUM CHLOR 0.45% 1000 ML INJ 1,000 ML IV SCH ×2 (01:01→12:23)
[2017-05-21] MEDS: MORPHINE SULFATE 15 MG TAB PO PRN ×2 (05:12→17:18)
[2017-05-21 07:19] LABS: CHLORIDE 100 MEQ/L (98-107); SODIUM (NA) 135 MEQ/L (136-145)
[2017-05-21 07:27] LABS: ALBUMIN 2.3 GM/DL (3.4-5.0); BICARBONATE 27.7 MEQ/L (21.0-32.0); CALCIUM 8.4 MG/DL (8.5-10.1); GLUCOSE,RANDOM 80 MG/DL (74-106)
[2017-05-21 07:28] LABS: BLOOD UREA NITROGEN 6 MG/DL (7-18)
[2017-05-21 07:30] LABS: AST (GOT) 74 U/L (15-37)
[2017-05-21 07:31] LABS: ALT (GPT) 96 U/L (10-53); CREATININE 0.52 MG/DL (0.50-1.00); GLOMERULAR FILTRATION RATE 124 ML/MIN (>89)
[2017-05-21 07:43] LABS: HEMATOCRIT 35.3 % (35.0-46.0); HEMOGLOBIN 11.9 GM/DL (11.6-15.3); MEAN CORPUSCULAR HEMOGLOBIN 29.4 PG (27.0-34.0); MEAN CORPUSCULAR HGB CONC 33.8 % (32.0-36.0); MEAN PLATELET VOLUME 9.4 FL (7.0-11.0); PLATELET COUNT 377 TH/MM3 (150-450); RED BLOOD COUNT 4.06 MIL/MM3 (4.00-5.30); RED CELL DISTRIBUTION WIDTH 14.2 % (11.6-17.2); WHITE BLOOD COUNT 14.5 TH/MM3 (4.0-11.0)
[2017-05-21 07:50] LABS: ALKALINE PHOSPHATASE 471 U/L (45-117); TOTAL BILIRUBIN ADULT 8.9 MG/DL (0.2-1.0); TOTAL PROTEIN 6.3 GM/DL (6.4-8.2)
[2017-05-21] MEDS: PANTOPRAZOLE SOD 40 MG DELAYED RELEASE TAB PO SCH (08:16)
[2017-05-21] MEDS: BISACODYL 10 MG SUPP RECTAL SCH (08:16)
[2017-05-21 08:20] LABS: BANDS 4 % (0-6); MONOCYTES 4 % (0-8); NEUTROPHIL # MANUAL DIFF 11.5 TH/MM3 (1.8-7.7); POLYS (SEG NEUTROPHILS) 75 % (16-70)
[2017-05-21 08:21] LABS: LYMPHOCYTES 10 % (9-44)
--- NOTE | 2017-05-21 08:56 | HHI.PR ---
Objective Vitals Vital Signs Date Time Temp Pulse Resp B/P (MAP) Pulse Ox O2 Delivery O2 Flow Rate FiO2 05/21/17 08:21 80 92/62 (72) 05/21/17 08:00 98.8 80 18 84/58 (67) 98 05/21/17 05:13 05/21/17 01:25 98.3 59 16 94/60 (71) 95 05/20/17 21:35 99.4 86 18 101/66 (78) 94 05/20/17 17:33 16 05/20/17 16:41 98.2 85 18 95/60 (72) 92 05/20/17 12:00 101.1 84 20 111/58 (75) 92 I/O 05/20/17 05/20/17 05/20/17 05/21/17 05/21/17 05/21/17 07:00 15:00 23:00 07:00 15:00 23:00 Intake Total 410 ml 1000 ml Balance 410 ml 1000 ml IV Total 410 ml 1000 ml # Voids 3 4 # Bowel Movements 0 Result Diagram: 05/21/17 0640 05/21/17 0640 Objective Remarks GENERAL: Well-developed, well-nourished, in no acute distress. alert and orientated HEENT: Head is normocephalic without any lesions or masses noted. Facial features are symmetric. Eyes: Extraocular muscles are intact. Conjunctivae were clear. Sclera mildly icteric NECK: Supple without any masses. Trachea midline no deviation. No JVD, CARDIAC: Regular rhythm, regular rate. S1/S2 are heard. No murmurs gallops or rubs. LUNGS: Clear to auscultation bilaterally. No wheeze, rhonchi or rales. No use of accessory muscles on inspiration or expiration. ABDOMEN: Soft, diffuse subjective abdominal tenderness. Nondistended. Bowel sounds heard in all 4 quadrants. No organomegaly or masses. Negative rebound, negative guarding EXTREMITIES: No edema, pulses are equal bilaterally. No cyanosis or clubbing NEUROLOGY: Mood and affect appear appropriate. Cranial nerves II through XII grossly intact. Moving all extremities, speech is clear A/P Problem List: (1) Abdominal pain ICD Code: R10.9 - Unspecified abdominal pain Status: Acute (2) Hypotension ICD Code: I95.9 - Hypotension, unspecified Status: Acute (3) Leukocytosis ICD Code: D72.829 - Elevated white blood cell count, unspecified Status: Acute (4) Sepsis ICD Code: A41.9 - Sepsis, unspecified organism Status: Acute Assessment and Plan Abdominal pain with transaminitis, hyperbilirubinemia, possible cholestasis Workup thus far has not identified any acute etiology CT the abdomen did not indicate any acute liver abnormality. MRCP shows normal common duct without hepatic ductal dilatation gallbladder ultrasound shows probable gallbladder polyps, otherwise negative Vital hepatitis panel was unremarkable GI following the patient and recommended HIDA scan and liver biopsy, I ordered those studies today Questran was added for itching Continue pain control. Morphine sulfate 30 mg every 8 hours as needed, morphine IV every 4 hours Leukocytosis, improving Antibiotics have been discontinued, no source of infection has been identified Continue monitor CBC DVT prevention Sequential compression devices Discharge Planning Discharge planning will be with her next 48-72 hours. Awaiting HIDA scan, liver biopsy, clinical improvement Shaq Kurtz May 21, 2017 08:55
[2017-05-21] MEDS ORDERED: MAGNESIUM HYDROXIDE SUSP 30 ML CUP PO PRN (09:15)
[2017-05-21] MEDS ORDERED: BISACODYL 10 MG SUPP RECTAL PRN (09:15)
[2017-05-21] MEDS: diphenhydrAMINE HCL 25 MG CAP PO PRN ×2 (10:25→22:13)
[2017-05-21] MEDS: MORPHINE SULFATE 2 MG/ML INJ IV PUSH PRN ×2 (10:25→22:19)
[2017-05-21] MEDS: DOCUSATE SODIUM 50 MG/SENNA 8.6 MG TAB PO SCH ×2 (10:25→20:43)
--- NOTE | 2017-05-21 11:22 | HHI.GIFU ---
GI Follow-up Note Consult Follow-up Subjective: Patient laying in bed comfortably, tearful, still abdominal pain , nausea .S/p liver biopsy , awaiting delayed HIDA scan results Objective: PHYSICAL EXAMINATION: Vitals signs stable No fever Vital Signs Date Time Temp Pulse Resp B/P (MAP) Pulse Ox O2 Delivery O2 Flow Rate FiO2 05/21/17 08:21 80 92/62 (72) 05/21/17 08:00 98.8 80 18 84/58 (67) 98 05/21/17 05:13 HEENT: Pupils round and reactive to light; normocephalic; atraumatic; jaundice. Throat is clear. NECK: Neck is supple, no JVD, no lymphadenopathy. CHEST: Chest is clear to auscultation and percussion. CARDIAC: Regular rate and rhythm with no murmur gallop or rubs. ABDOMEN: Soft, nondistended, epigastric tenderness . no hepatosplenomegaly; bowel sounds are present in all four quadrants. EXTREMITIES: No clubbing, cyanosis, or edema. SKIN: Normal; no rash; jaundice. SKI GUIDE: No focal deficits; alert and oriented times three. Available Data (labs, X- Rays, Procedues) : Laboratory Tests Test 05/20/17 06:00 05/20/17 12:43 05/20/17 19:55 05/21/17 06:40 Blood Urea Nitrogen 5 MG/DL 6 MG/DL Creatinine 0.69 MG/DL 0.52 MG/DL Random Glucose 104 MG/DL 80 MG/DL Total Protein 6.2 GM/DL 6.3 GM/DL Albumin 2.3 GM/DL 2.3 GM/DL Calcium Level 8.1 MG/DL 8.4 MG/DL Alkaline Phosphatase 444 U/L 471 U/L Aspartate Amino Transf (AST/SGOT) 69 U/L 74 U/L Alanine Aminotransferase (ALT/SGPT) 120 U/L 96 U/L Total Bilirubin 6.1 MG/DL 8.9 MG/DL Sodium Level 136 MEQ/L 135 MEQ/L Potassium Level 3.5 MEQ/L 3.4 MEQ/L Chloride Level 103 MEQ/L 100 MEQ/L Carbon Dioxide Level 26.2 MEQ/L 27.7 MEQ/L Anion Gap 7 MEQ/L 7 MEQ/L Estimat Glomerular Filtration Rate 90 ML/MIN 124 ML/MIN Prothrombin Time 10.7 SEC Prothromb Time International Ratio 1.1 RATIO Activated Partial Thromboplast Time 26.3 SEC Iron Level 28 MCG/DL Total Iron Binding Capacity 302 MCG/DL Percent Iron Saturation 9.3 % Ferritin 71 NG/ML White Blood Count 14.5 TH/MM3 Red Blood Count 4.06 MIL/MM3 Hemoglobin 11.9 GM/DL Hematocrit 35.3 % Mean Corpuscular Volume 87.0 FL Mean Corpuscular Hemoglobin 29.4 PG Mean Corpuscular Hemoglobin Concent 33.8 % Red Cell Distribution Width 14.2 % Platelet Count 377 TH/MM3 Mean Platelet Volume 9.4 FL CBC Comment AUTO DIFF Differential Total Cells Counted 100 Neutrophils % (Manual) 75 % Band Neutrophils % 4 % Lymphocytes % 10 % Monocytes % 4 % Eosinophils % 7 % Neutrophils # (Manual) 11.5 TH/MM3 Differential Comment FINAL DIFF MANUAL Atypical Lymphocytes % Platelet Estimate NORMAL Platelet Morphology Comment NORMAL Red Cell Morphology Comment NORMAL ASSESSMENT/PLAN: elevated lfts -suggesting hepatitis -awaiting livr biopsy, no indication of biliary obstruction based on mrcp abnormal hida -awaiting delayed studies Pruritus secondary elevated bilirubin Recommendations await liver biopsy mra abdomen to r/o vasculitis fu labs we will start Actigall fu delayed hida It was a pleasure seeing Radha Humphreys. Thank you for this consult. Entered by: Delfina Rowe MD May 21, 2017 11:22
--- NOTE | 2017-05-21 12:57 | HHI.PR ---
Subjective Remarks Patient seen and examined today for follow-up on abnormal liver studies, jaundice, abdominal pain. Patient states that she has had no significant improvement. I discussed with her the recent studies are not complete. Still awaiting bypass resolved as well as HIDA scan needs further follow-up for evaluation. Objective Vitals Vital Signs Date Time Temp Pulse Resp B/P (MAP) Pulse Ox O2 Delivery O2 Flow Rate FiO2 05/21/17 12:00 97.6 78 18 92/59 (70) 95 05/21/17 08:21 80 92/62 (72) 05/21/17 08:00 98.8 80 18 84/58 (67) 98 05/21/17 05:13 05/21/17 01:25 98.3 59 16 94/60 (71) 95 05/20/17 21:35 99.4 86 18 101/66 (78) 94 05/20/17 17:33 16 05/20/17 16:41 98.2 85 18 95/60 (72) 92 I/O 05/20/17 05/20/17 05/20/17 05/21/17 05/21/17 05/21/17 07:00 15:00 23:00 07:00 15:00 23:00 Intake Total 410 ml 1000 ml 240 ml Balance 410 ml 1000 ml 240 ml Intake Oral 240 ml IV Total 410 ml 1000 ml # Voids 3 4 # Bowel Movements 0 Result Diagram: 05/21/17 0640 05/21/17 0640 Objective Remarks GENERAL: Well-developed, well-nourished, in no acute distress. alert and orientated HEENT: Head is normocephalic without any lesions or masses noted. Facial features are symmetric. Eyes: Extraocular muscles are intact. Conjunctivae were clear. Sclera mildly icteric NECK: Supple without any masses. Trachea midline no deviation. No JVD, CARDIAC: Regular rhythm, regular rate. S1/S2 are heard. No murmurs gallops or rubs. LUNGS: Clear to auscultation bilaterally. No wheeze, rhonchi or rales. No use of accessory muscles on inspiration or expiration. ABDOMEN: Soft, diffuse subjective abdominal tenderness. Nondistended. Bowel sounds heard in all 4 quadrants. No organomegaly or masses. Negative rebound, negative guarding EXTREMITIES: No edema, pulses are equal bilaterally. No cyanosis or clubbing NEUROLOGY: Mood and affect appear appropriate. Cranial nerves II through XII grossly intact. Moving all extremities, speech is clear Urinary Catheter: No Vascular Central Line Catheter: No A/P Assessment and Plan Abdominal pain with transaminitis, hyperbilirubinemia, possible cholestasis Workup thus far has not identified any acute etiology CT the abdomen did not indicate any acute liver abnormality. MRCP shows normal common duct without hepatic ductal dilatation gallbladder ultrasound shows probable gallbladder polyps, otherwise negative Vital hepatitis panel was unremarkable HIDA scan awaiting further follow-up films for complete evaluation Liver biopsy has been performed, awaiting results GI recommending MRA of the abdomen Further laboratory studies have been requested for viral studies, autoimmune studies Continue pain control. Morphine sulfate 30 mg every 8 hours as needed, morphine IV every 4 hours Leukocytosis Antibiotics have been discontinued, no source of infection has been identified Continue monitor CBC DVT prevention Sequential compression devices Discharge Planning Discharge planning still indeterminate at this time. Patient still undergoing workup, awaiting biopsy results Shaq Kurtz May 21, 2017 12:57
[2017-05-21] MEDS ORDERED: GADODIAMIDE PF 287 MG/ML 20 ML VIAL (for RAD MRI) IVCONTRAST ONE (14:30)
[2017-05-21 15:19] LABS: MONOSCREEN NEG (NEG)
--- NOTE | 2017-05-21 16:25 | RADRPT ---
EXAM DATE/TIME: 05/21/2017 14:06 [facility] COMPARISON: US ABDOMEN - GALLBLADDER, May 16, 2017, 17:15. CT ABDOMEN & PELVIS W/O CONTRAST, May 16 018, 16:45. INDICATIONS : Jaundice. CONTRAST: 20 cc Omniscan (gadodiamide) IV MEDICAL HISTORY : None. SURGICAL HISTORY : section. ENCOUNTER: Initial ACUITY: 1 day PAIN SCORE: 5/10 LOCATION: Abdomen. TECHNIQUE: Bolus infused MR angiography was performed. The data was postprocessed with a variety of visualizati on algorithms including full-volume maximum-intensity projection, multiplanar sliding thin slab refor mation, and curved planar reformation. FINDINGS: ABDOMINAL AORTA: The lumen is smooth without significant narrowing or aneurysmal dilatation. The proximal celiac and s uperior mesenteric arteries are patent and normal in diameter. RENAL ARTERIES: There are solitary renal arteries bilaterally. No evidence of ostial or segmental stenosis. KIDNEYS: Kidneys are grossly symmetrical in size. Redemonstration 1.7 cm probable cyst inferior pole of the ri ght kidney although this is incompletely evaluated. BIFURCATION: Normal. RIGHT PELVIS: The right common iliac, internal iliac, and external iliac vessels are patent without luminal irregul arity. LEFT PELVIS: The left common iliac, internal iliac, and external iliac vessels are patent and without luminal irre gularity. RETROPERITONEUM: The adrenal glands are unremarkable. No adenopathy seen. LIVER: Visualized portions of the liver are grossly unremarkable without evidence for intrahepatic ductal di latation. The central portal vein and hepatic veins appear patent. CONCLUSION: 1. Normal MRA examination of the abdomen. Specifically, the celiac and SMA are patent. 2. Limited but grossly normal-appearing appearance of the liver. No hepatic ductal dilatation. Centra l hepatic veins and portal vein are patent. 3. Small probable 1.7 cm right renal cyst. Mert Canales MD on May 21, 2017 at 16:19 Board Certified Radiologist. This report was verified electronically.
[2017-05-21] MEDS: URSODIOL 300 MG CAP PO SCH (20:42)
[2017-05-22 00:39] VITALS: BP 99/62; PULSE 68; RESP 18; TEMP 98; O2SAT 96
[2017-05-22 08:00] VITALS: BP 83/57; PULSE 84; RESP 18; TEMP 99.5; O2SAT 95
--- NOTE | 2017-05-22 08:22 | HHI.PR ---
Subjective Remarks Patient seen and examined today for follow-up on abnormal liver studies, jaundice, abdominal pain. Patient has undergone extensive workup which is unremarkable thus far. This was discussed with the patient extensively. Patient states that she still having abdominal pain but is trying to wean herself off of pain medication. We are still awaiting biopsy results. Objective Vitals Vital Signs Date Time Temp Pulse Resp B/P (MAP) Pulse Ox O2 Delivery O2 Flow Rate FiO2 05/22/17 04:49 05/22/17 00:39 98.0 68 18 99/62 (74) 96 05/21/17 22:17 104/71 (82) 05/21/17 21:01 97.9 77 16 95/60 (72) 97 05/21/17 16:00 98.8 72 18 93/55 (68) 96 05/21/17 12:00 97.6 78 18 92/59 (70) 95 I/O 05/21/17 05/21/17 05/21/17 05/22/17 05/22/17 05/22/17 07:00 15:00 23:00 07:00 15:00 23:00 Intake Total 1000 ml 965 ml 2562 ml 140 ml Balance 1000 ml 965 ml 2562 ml 140 ml Intake Oral 965 ml 240 ml IV Total 1000 ml 2322 ml 140 ml # Voids 4 5 # Bowel Movements 0 2 Result Diagram: 05/21/17 0640 05/21/17 0640 Objective Remarks GENERAL: Well-developed, well-nourished, in no acute distress. alert and orientated HEENT: Head is normocephalic without any lesions or masses noted. Facial features are symmetric. Eyes: Extraocular muscles are intact. Conjunctivae were clear. Sclera mildly icteric NECK: Supple without any masses. Trachea midline no deviation. No JVD, CARDIAC: Regular rhythm, regular rate. S1/S2 are heard. No murmurs gallops or rubs. LUNGS: Clear to auscultation bilaterally. No wheeze, rhonchi or rales. No use of accessory muscles on inspiration or expiration. ABDOMEN: Soft, diffuse subjective abdominal tenderness. Nondistended. Bowel sounds heard in all 4 quadrants. No organomegaly or masses. Negative rebound, negative guarding EXTREMITIES: No edema, pulses are equal bilaterally. No cyanosis or clubbing NEUROLOGY: Mood and affect appear appropriate. Cranial nerves II through XII grossly intact. Moving all extremities, speech is clear Urinary Catheter: No Vascular Central Line Catheter: No A/P Assessment and Plan Abdominal pain with transaminitis, hyperbilirubinemia, possible cholestasis Workup thus far has not identified any acute etiology CT the abdomen did not indicate any acute liver abnormality. MRCP shows normal common duct without hepatic ductal dilatation Gallbladder ultrasound shows probable gallbladder polyps, otherwise negative Vital hepatitis panel was unremarkable HIDA scan was unremarkable MRA of the abdomen was unremarkable Liver biopsy has been performed, awaiting results Further laboratory studies have been requested for viral studies, autoimmune studies Continue pain control. Morphine sulfate 30 mg every 8 hours as needed, morphine IV every 4 hours Discuss with GI who indicates that could be combination of alcohol and Tylenol use. GI notified patient she can be discharged home when clinically improved with outpatient follow-up for biopsy result Leukocytosis Antibiotics have been discontinued, no source of infection has been identified Continue monitor CBC DVT prevention Sequential compression devices Discharge Planning Discharge planning when clinically improved with outpatient follow-up with Shaq Ruvalcaba May 22, 2017 08:22
[2017-05-22] MEDS: MORPHINE SULFATE 15 MG TAB PO PRN ×2 (08:52→17:36)
[2017-05-22] MEDS: DOCUSATE SODIUM 50 MG/SENNA 8.6 MG TAB PO SCH ×2 (08:52→22:00)
[2017-05-22] MEDS: BISACODYL 10 MG SUPP RECTAL SCH (08:53)
[2017-05-22] MEDS: URSODIOL 300 MG CAP PO SCH ×2 (08:53→22:00)
[2017-05-22] MEDS: PANTOPRAZOLE SOD 40 MG DELAYED RELEASE TAB PO SCH (08:53)
[2017-05-22] MEDS: diphenhydrAMINE HCL 25 MG CAP PO PRN ×2 (10:28→22:07)
--- NOTE | 2017-05-22 10:38 | HHI.GIFU ---
GI Follow-up Note Consult Follow-up Subjective: Patient laying in bed comfortably, feeling better.Still some abdominal pain. Discussed results of HIDA and MRA.Awaiting pathology report and labs . History of use Tylenol products and occasional etoh use , possible contributing factors, other etiologies still being excluded-blood work, liver biopsy pending Objective: PHYSICAL EXAMINATION: Vitals signs stable No fever Vital Signs Date Time Temp Pulse Resp B/P (MAP) Pulse Ox O2 Delivery O2 Flow Rate FiO2 05/22/17 08:00 99.5 84 18 83/57 (66) 95 05/22/17 04:49 HEENT: Pupils round and reactive to light; normocephalic; atraumatic; jaundice. Throat is clear. NECK: Neck is supple, no JVD, no lymphadenopathy. CHEST: Chest is clear to auscultation and percussion. CARDIAC: Regular rate and rhythm with no murmur gallop or rubs. ABDOMEN: Soft, nondistended, epigastric tenderness ; no hepatosplenomegaly; bowel sounds are present in all four quadrants. EXTREMITIES: No clubbing, cyanosis, or edema. SKIN: Normal; no rash; jaundice. HALL CLERK: No focal deficits; alert and oriented times three. Available Data (labs, X- Rays, Procedues) : Laboratory Tests Test 05/20/17 12:43 05/20/17 19:55 05/21/17 06:40 Prothrombin Time 10.7 SEC Prothromb Time International Ratio 1.1 RATIO Activated Partial Thromboplast Time 26.3 SEC Iron Level 28 MCG/DL Total Iron Binding Capacity 302 MCG/DL Percent Iron Saturation 9.3 % Ferritin 71 NG/ML White Blood Count 14.5 TH/MM3 Red Blood Count 4.06 MIL/MM3 Hemoglobin 11.9 GM/DL Hematocrit 35.3 % Mean Corpuscular Volume 87.0 FL Mean Corpuscular Hemoglobin 29.4 PG Mean Corpuscular Hemoglobin Concent 33.8 % Red Cell Distribution Width 14.2 % Platelet Count 377 TH/MM3 Mean Platelet Volume 9.4 FL CBC Comment AUTO DIFF Differential Total Cells Counted 100 Neutrophils % (Manual) 75 % Band Neutrophils % 4 % Lymphocytes % 10 % Monocytes % 4 % Eosinophils % 7 % Neutrophils # (Manual) 11.5 TH/MM3 Differential Comment FINAL DIFF MANUAL Atypical Lymphocytes % Platelet Estimate NORMAL Platelet Morphology Comment NORMAL Red Cell Morphology Comment NORMAL Blood Urea Nitrogen 6 MG/DL Creatinine 0.52 MG/DL Random Glucose 80 MG/DL Total Protein 6.3 GM/DL Albumin 2.3 GM/DL Calcium Level 8.4 MG/DL Alkaline Phosphatase 471 U/L Aspartate Amino Transf (AST/SGOT) 74 U/L Alanine Aminotransferase (ALT/SGPT) 96 U/L Total Bilirubin 8.9 MG/DL Sodium Level 135 MEQ/L Potassium Level 3.4 MEQ/L Chloride Level 100 MEQ/L Carbon Dioxide Level 27.7 MEQ/L Anion Gap 7 MEQ/L Estimat Glomerular Filtration Rate 124 ML/MIN Monoscreen NEG ASSESSMENT/PLAN: Elevated [id number]-spuo-ly suggesting hepatitis -unclear etiology at this point abdominal pain, abnormal gb on us-additional studies do not suggest gb Recommendations await liver biopsy report close monitoring of lfts , inr continue Actigall avoid hepatotoxics Tylenol/etoh if improvement ok to dc home with close fu op It was a pleasure seeing Radha Humphreys. Thank you for this consult. Entered by: Delfina Rowe MD May 22, 2017 10:38
[2017-05-22 12:00] VITALS: BP 93/57; PULSE 73; RESP 18; TEMP 98; O2SAT 96
[2017-05-22] MEDS: MORPHINE SULFATE 2 MG/ML INJ IV PUSH PRN ×2 (13:23→22:07)
[2017-05-22 16:00] VITALS: BP 98/70; PULSE 78; RESP 18; TEMP 97.8; O2SAT 95
[2017-05-22 20:19] VITALS: BP 101/70; PULSE 80; RESP 16; TEMP 99.9; O2SAT 97
[2017-05-23 00:31] VITALS: BP 102/64; PULSE 79; RESP 14; TEMP 98.4; O2SAT 93
[2017-05-23] MEDS: diphenhydrAMINE HCL 25 MG CAP PO PRN ×2 (04:09→09:49)
[2017-05-23] MEDS: MORPHINE SULFATE 15 MG TAB PO PRN (04:09)
[2017-05-23 07:29] LABS: HEMATOCRIT 32.5 % (35.0-46.0); HEMOGLOBIN 11.4 GM/DL (11.6-15.3); MEAN CORPUSCULAR HEMOGLOBIN 30.9 PG (27.0-34.0); MEAN CORPUSCULAR HGB CONC 35.2 % (32.0-36.0); MEAN PLATELET VOLUME 9.7 FL (7.0-11.0); PLATELET COUNT 459 TH/MM3 (150-450); RED CELL DISTRIBUTION WIDTH 14.6 % (11.6-17.2); WHITE BLOOD COUNT 15.2 TH/MM3 (4.0-11.0)
[2017-05-23 07:30] LABS: CHLORIDE 102 MEQ/L (98-107); SODIUM (NA) 137 MEQ/L (136-145)
[2017-05-23 07:33] LABS: CALCIUM 8.4 MG/DL (8.5-10.1)
[2017-05-23 07:34] LABS: ALBUMIN 2.2 GM/DL (3.4-5.0); BICARBONATE 27.3 MEQ/L (21.0-32.0); BLOOD UREA NITROGEN 4 MG/DL (7-18); GLUCOSE,RANDOM 101 MG/DL (74-106)
[2017-05-23 07:37] LABS: ALT (GPT) 88 U/L (10-53); AST (GOT) 94 U/L (15-37); CREATININE 0.52 MG/DL (0.50-1.00); GLOMERULAR FILTRATION RATE 124 ML/MIN (>89)
[2017-05-23 07:39] LABS: TOTAL BILIRUBIN ADULT 8.5 MG/DL (0.2-1.0); TOTAL PROTEIN 6.3 GM/DL (6.4-8.2)
[2017-05-23 07:40] LABS: ALKALINE PHOSPHATASE 593 U/L (45-117)
[2017-05-23 08:00] VITALS: BP 100/60; PULSE 70; RESP 16; TEMP 96.8; O2SAT 96
[2017-05-23 08:03] LABS: LYMPHOCYTES 13 % (9-44); MONOCYTES 7 % (0-8); NEUTROPHIL # MANUAL DIFF 11.4 TH/MM3 (1.8-7.7); POLYS (SEG NEUTROPHILS) 75 % (16-70)
[2017-05-23] MEDS: DOCUSATE SODIUM 50 MG/SENNA 8.6 MG TAB PO SCH (08:10)
[2017-05-23] MEDS: PANTOPRAZOLE SOD 40 MG DELAYED RELEASE TAB PO SCH (08:10)
[2017-05-23] MEDS: URSODIOL 300 MG CAP PO SCH (08:11)
--- NOTE | 2017-05-23 08:14 | RADRPT ---
EXAM DATE/TIME: 05/20/2017 15:44 [facility] COMPARISON: CT ABDOMEN & PELVIS W/O CONTRAST, May 16, 2017, 16:45. INDICATIONS : Abnormal LFT's. Liver biopsy for function. SEDATION TIME: 30 minutes BIOPSY SITE: Liver MEDICATION(S): 1.) 100 mcg fentanyl (Sublimaze) IV DEVICE(S): 1.) 18 gauge Temno core biopsy needle MEDICAL HISTORY : None. SURGICAL HISTORY : section. Tubal ligation. ENCOUNTER: Initial ACUITY: 1 day PAIN SCORE: 0/10 LOCATION: Liver A total of one core specimen(s) were obtained and sent to the laboratory for pathologic evaluation. PROCEDURE: 1. CT guided liver biopsy. 2. Conscious sedation with continuous EKG and oximetry monitoring. 3. EKG and oximetry remained stable throughout the procedure. Prior to the procedure informed consent was obtained. Any appropriate prior imaging studies were rev iewed. Using automated exposure control and adjustment of the mA and/or kV according to patient size, radiat ion dose was kept as low as reasonably achievable to obtain optimal diagnostic quality images. DICOM format image data is available electronically for review and comparison. The site was prepped in a sterile fashion. Full sterile technique was used, including cap, mask, serena rile gloves and gown and a large sterile sheet. Hand hygiene and 2% chlorhexidine and/or betadine/al cohol prep was utilized per protocol for cutaneous antisepsis. The skin and subcutaneous tissues wer e infiltrated with local anesthetic solution. With CT guidance the previously identified target was localized. Biopsy was performed using the presc ribed needle as above. Adequate hemostasis was obtained with compression at the puncture site. Follow-up CT scan reveals no hemorrhage. The patient tolerated the procedure well and there were no complications. The patient was returned to the Radiology Outpatient Unit in stable condition. CONCLUSION: Uncomplicated CT guided biopsy. Rodney Monahan MD on May 23, 2017 at 8:12 Board Certified Radiologist. This report was verified electronically.
[2017-05-23] MEDS: BISACODYL 10 MG SUPP RECTAL SCH (09:00)
[2017-05-23] MEDS ORDERED: POTASSIUM CHLORIDE 20 MEQ CONTROLLED RELEASE TAB PO ONE (10:00)
[2017-05-23 10:49] VITALS: RESP 20
[2017-05-23] MEDS ORDERED: Ursodiol PO (11:54)
[2017-05-23] MEDS ORDERED: OXYC-392 PO (11:54)
--- NOTE | 2017-05-23 11:54 | HHI.DCPOC ---
Discharge Care Plan Diagnosis: (1) Transaminitis (2) Cholestasis (3) Abdominal pain Goals to Promote Your Health * To prevent worsening of your condition and complications * To maintain your health at the optimal level Directions to Meet Your Goals Take your medications as prescribed Follow your dietary instruction Follow activity as directed Keep your appointments as scheduled Take your immunizations and boosters as scheduled If your symptoms worsen call your PCP, if no PCP go to Urgent Care Center or Emergency Room Smoking is Dangerous to Your Health. Avoid second hand smoke Call the 24-hour hour crisis hotline for domestic abuse at Shaq Kurtz May 23, 2017 11:54
--- NOTE | 2017-05-23 12:45 | HHI.DS ---
Discharge Summary Admission Date May 16, 2017 at 18:44 Discharge Date: May 23, 2017 Admitting Diagnosis OBSTRUCTIVE HEPATITIS,ABD PAIN (1) Abdominal pain ICD Code: R10.9 - Unspecified abdominal pain Status: Acute (2) Hypotension ICD Code: I95.9 - Hypotension, unspecified Status: Acute (3) Leukocytosis ICD Code: D72.829 - Elevated white blood cell count, unspecified Status: Acute (4) Sepsis ICD Code: A41.9 - Sepsis, unspecified organism Status: Acute (5) Cholestasis ICD Code: K83.1 - Obstruction of bile duct (6) Transaminitis ICD Code: R74.0 - Nonspecific elevation of levels of transaminase and lactic acid dehydrogenase [LDH] Status: Acute Procedures Liver biopsy Brief History - From Admission The patient is a 52-year-old female who presented with worsening abdominal pain that started about a month ago, but has been worsening significantly over the past 3 days. She reports nausea and vomiting. Denies diarrhea or constipation. She reports fever, chills, and night sweats. She states that this feels like the pain she had with her 2 prior hospitalizations for GI infections. CBC/BMP: 05/23/17 0627 05/23/17 0627 Significant Findings Laboratory Tests Test 05/20/17 12:43 05/20/17 19:55 05/21/17 06:40 05/23/17 06:27 Iron Level 28 MCG/DL (50-170) Percent Iron Saturation 9.3 % (20-50) White Blood Count 14.5 TH/MM3 (4.0-11.0) 15.2 TH/MM3 (4.0-11.0) Neutrophils % (Manual) 75 % (16-70) 75 % (16-70) Eosinophils % 7 % (0-4) 5 % (0-4) Neutrophils # (Manual) 11.5 TH/MM3 (1.8-7.7) 11.4 TH/MM3 (1.8-7.7) Blood Urea Nitrogen 6 MG/DL (7-18) 4 MG/DL (7-18) Total Protein 6.3 GM/DL (6.4-8.2) 6.3 GM/DL (6.4-8.2) Albumin 2.3 GM/DL (3.4-5.0) 2.2 GM/DL (3.4-5.0) Calcium Level 8.4 MG/DL (8.5-10.1) 8.4 MG/DL (8.5-10.1) Alkaline Phosphatase 471 U/L (45-117) 593 U/L (45-117) Aspartate Amino Transf (AST/SGOT) 74 U/L (15-37) 94 U/L (15-37) Alanine Aminotransferase (ALT/SGPT) 96 U/L (10-53) 88 U/L (10-53) Total Bilirubin 8.9 MG/DL (0.2-1.0) 8.5 MG/DL (0.2-1.0) Sodium Level 135 MEQ/L (136-145) Potassium Level 3.4 MEQ/L (3.5-5.1) 3.2 MEQ/L (3.5-5.1) Red Blood Count 3.70 MIL/MM3 (4.00-5.30) Hemoglobin 11.4 GM/DL (11.6-15.3) Hematocrit 32.5 % (35.0-46.0) Platelet Count 459 TH/MM3 (150-450) Platelet Estimate HIGH (NORMAL) Imaging Last Impressions Abdomen Magnetic Resonance Angio 05/21/17 0000 Signed Impressions: Service Date/Time: Sunday, May 21, 2017 14:06 - CONCLUSION: 1. Normal MRA examination of the abdomen. Specifically, the celiac and SMA are patent. 2. Limited but grossly normal-appearing appearance of the liver. No hepatic ductal dilatation. Central hepatic veins and portal vein are patent. 3. Small probable 1.7 cm right renal cyst. Mert Canales MD Liver Biopsy CT 05/20/17 0000 Signed Impressions: Service Date/Time: Saturday, May 20, 2017 15:44 - CONCLUSION: Uncomplicated CT guided biopsy. Rodney Monahan MD Hepatobiliary Scan Nuclear Medicine 05/20/17 0000 Signed Impressions: Service Date/Time: Saturday, May 20, 2017 13:38 - CONCLUSION: 1. Abnormal examination demonstrating poor hepatocyte function with no significant biliary to bowel transit. Primary differential consideration would be an acute hepatitis since there is no evidence of ductal dilation on the patient's MRCP dated 05/18/17 2. Delayed imaging at 24 hours would be of benefit for more definitive assessment. Rodney Monahan MD ADDENDUM: 20 hour delayed images demonstrate focal activity in the region of the gallbladder with persistent activity throughout the liver. This confirms patency of the cystic duct and makes acute cholecystitis unlikely. However, persistent diffuse liver activity again is consistent with hepatocyte dysfunction. Mert Canales MD Cholangiopancreatography MRI 05/18/17 0000 Signed Impressions: Service Date/Time: Thursday, May 18, 2017 13:00 - CONCLUSION: 1. Simple right renal cyst 2. Normal common duct without hepatic ductal dilatation 3. Pancreas is unremarkable. Jorden Monahan MD FACR Chest X-Ray 05/17/17 0000 Signed Impressions: Service Date/Time: Wednesday, May 17, 2017 04:43 - CONCLUSION: Mild interstitial infiltrate in left lower lobe airspace disease. Josué Burkett MD Abdomen/Pelvis CT 05/16/17 1604 Signed Impressions: Service Date/Time: Tuesday, May 16, 2017 16:45 - CONCLUSION: 1.7 cm low-density mass right kidney incompletely evaluated on today's exam without contrast There are no renal stones. There is no significant stool. Jorden Monahan MD FACR Gall Bladder Ultrasound 05/16/17 0000 Signed Impressions: Service Date/Time: Tuesday, May 16, 2017 17:15 - CONCLUSION: 1. Probable gallbladder polyps. 2. Stable right renal cyst in the lower pole. 3. Otherwise negative. Melecio Enriquez MD PE at Discharge GENERAL: Well-developed, well-nourished, in no acute distress. alert and orientated HEENT: Head is normocephalic without any lesions or masses noted. Facial features are symmetric. Eyes: Extraocular muscles are intact. Conjunctivae were clear. Sclera mildly icteric NECK: Supple without any masses. Trachea midline no deviation. No JVD, CARDIAC: Regular rhythm, regular rate. S1/S2 are heard. No murmurs gallops or rubs. LUNGS: Clear to auscultation bilaterally. No wheeze, rhonchi or rales. No use of accessory muscles on inspiration or expiration. ABDOMEN: Soft, diffuse subjective abdominal tenderness. Nondistended. Bowel sounds heard in all 4 quadrants. No organomegaly or masses. Negative rebound, negative guarding EXTREMITIES: No edema, pulses are equal bilaterally. No cyanosis or clubbing NEUROLOGY: Mood and affect appear appropriate. Cranial nerves II through XII grossly intact. Moving all extremities, speech is clear Hospital Course Abdominal pain with transaminitis, hyperbilirubinemia, possible cholestasis Workup thus far has not identified any acute etiology CT the abdomen did not indicate any acute liver abnormality. MRCP shows normal common duct without hepatic ductal dilatation Gallbladder ultrasound shows probable gallbladder polyps, otherwise negative Vital hepatitis panel was unremarkable HIDA scan was unremarkable MRA of the abdomen was unremarkable Liver biopsy has been performed, awaiting results Liver enzymes have improved and are remaining stable. Hyperbilirubin is trending downward at this time Further laboratory studies have been requested for viral studies, autoimmune studies Continue pain control. Oxycodone prescription provided to the patient Discussed with GI who indicates that could be combination of alcohol and Tylenol use. GI notified patient she can be discharged home when clinically improved with outpatient follow-up for biopsy result Leukocytosis Antibiotics have been discontinued, no source of infection has been identified Pt Condition on Discharge: Stable Discharge Disposition: Discharge Home Discharge Time: > 30 minutes Discharge Instructions DIET: Follow Instructions for: Heart Healthy Diet Activities you can perform: Regular-No Restrictions Activities to Avoid: Driving for 24 hrs Follow up Referrals: Gastroenterology - 1 Week PCP Follow-up - 1 Week New Medications: Oxycodone (Oxycodone) 5 Mg Tab 5 MG PO Q6H PRN for pain, #12 TAB [Ursodiol] () 300 MG CAP 300 MG PO Q12HR for abdominal pain, #20 TAB Continued Medications: Pantoprazole (Pantoprazole) 40 Mg Tab 40 MG PO DAILY for gi, #31 TAB 1 Refill Discontinued Medications: Acetaminophen (Eq Acetaminophen) 325 Mg Tab 650 MG PO Q6H PRN for PAIN SCALE 1 TO 2, #60 TAB Hydrocodone-Acetaminophen (Hydrocodone-Acetaminophen) 5-325 mg Tab 1 TAB PO Q4H PRN for PAIN SCALE 3 TO 5, #20 TAB Levofloxacin (Levaquin) 750 Mg Tablet 750 MG PO DAILY@12 for Infection, #6 TAB Shaq Kurtz May 23, 2017 12:45
[2017-05-24 00:19] LABS: EBV VCA IgM Positive (Negative)
[2017-05-24 13:49] LABS: ALPHA-1-ANTITRYPSIN 224 mg/dL (100 - 190)
[2017-05-25 15:53] LABS: ENDOMYSIAL AB SCREEN ND (NEGATIVE); ENDOMYSIAL AB TITER ND (<1:5)
[2017-05-25 17:52] LABS: HERPES 6 IGM <1:20; HERPES INTERPRETATION PAST INFECTION (NON-REACTVE)
[2017-05-26 23:53] LABS: MITOCHONDRIAL ABS LESS THAN 20.0 U (<=20.0)
[2017-05-27 15:52] LABS: CERULOPLASMIN 41 mg/dL (18-53)
== END 2017-05-23 13:40 | disposition home or self-care (01) | DRG 948 ==
LOC: PHED 13:20 → PHEDA 18:30 → OBSVTOIN 18:44 → PH3A 22:03
PROVIDERS: ADMIT Hospitalist; ATTEND Hospitalist
PROC: 0FB03ZX Excision of Liver, Percutaneous Approach, Diagnostic (ICD-10-PCS; principal; 2017-05-20)
DX: R74.0 Nonspecific elevation of levels of transaminase and lactic acid dehydrogenase [LDH] (principal); I95.9 Hypotension, unspecified; F17.210 Nicotine dependence, cigarettes, uncomplicated; L29.9 Pruritus, unspecified; K82.4 Cholesterolosis of gallbladder; R10.10 Upper abdominal pain, unspecified
CPT/HCPCS: 47000; 71046; 74176; 74183; 76377; 76705; 77012; 78226; 80053; 80074; 80076; 80307; 81001; 82103; 82390; 82550; 82728; 82784; 83516; 83520; 83540; 83550; 83690; 84484; 84703; 85007; 85025; 85027; 85379; 85610; 85730; 86021; 86038; 86255; 86308; 86664; 86665; 86790; 87040; 87497; 88307; 88313; 93005; 99285; A9537; A9579; C8900; J0744; J1956; J2270; J2405; J3010; J7030